=== PATIENT | male | born 1940 | race Caucasian/White ===

== ENCOUNTER → 2022-09-07 | Outpatient (CLI) | payer MEDICARE ==
--- NOTE | 2022-09-07 15:04 | US ---
EXAMINATION TYPE: US abdomen complete DATE OF EXAM: 09/07/2022 COMPARISON: NONE CLINICAL HISTORY: R74.01 ELEVATION OF LEVELS OF LIVER TRANSAMINASE L. TECHNIQUE: Multiple sonographic images of the abdomen are obtained. FINDINGS: EXAM MEASUREMENTS: Liver Length: 13.5 cm Gallbladder Wall: 0.22 cm CBD: 1.45 cm Spleen: 9.8 cm Right Kidney: 9.9 x 4.1 x 5.0 cm Left Kidney: 9.4 x 4.3 x 4.8 cm Pancreas: Tail obscured by overlying bowel gas Liver: Slightly echogenic. Biliary dilatation Gallbladder: Shadowing non mobile echogenic foci, 1.8 x 1.5 x 1.9cm Evidence for sonographic Carrera's sign: No CBD: Dilated up to 1.45 cm Spleen: wnl Right Kidney: Mid lateral pole anechoic mass 2.0 x 2.0 x 2.0cm Left Kidney: wnl Upper IVC: wnl Abd Aorta: Atherosclerotic changes IMPRESSION: 1. Dilated common bile duct. There is intrahepatic biliary dilatation. Correlate for common bile duct obstruction. 2. Cholelithiasis. 3 right renal cyst
== END | disposition home or self-care (01) ==
LOC: RADUSWWP 07:55
PROVIDERS: ATTEND Family Medicine
DX: K80.20 Calculus of gallbladder without cholecystitis without obstruction (principal); N28.1 Cyst of kidney, acquired
CPT/HCPCS: 76700

== ENCOUNTER 2023-05-15 18:50 | Inpatient (IN) | payer MEDICARE ==
--- NOTE | 2023-05-15 21:33 | XR ---
EXAMINATION TYPE: XR pelvis AP view DATE OF EXAM: 05/15/2023 9:10 PM INDICATION: Patient age:Male; 83 years old; Reason for study: Trauma; COMPARISON: None TECHNIQUE: The pelvis was examined in a single projection. FINDINGS: There is no evidence of fracture or dislocation. There is no soft tissue abnormality. No a bnormal calcifications are present. The spine appears intact. Multilevel disc degeneration changes of the spine. IMPRESSION: No acute osseous pathology.
--- NOTE | 2023-05-15 21:43 | XR ---
EXAMINATION TYPE: XR chest 1V portable DATE OF EXAM: 05/15/2023 9:10 PM COMPARISON: None TECHNIQUE: XR chest 1V portable Frontal view of the chest. CLINICAL INDICATION:Male, 83 years old with history of trauma; FINDINGS: Lungs/Pleura: There is no evidence of pleural effusion, focal consolidation, or pneumothorax. Pulmonary vascularity: Unremarkable. Heart/mediastinum: Cardiomediastinal silhouette is unremarkable. Musculoskeletal: No acute osseous pathology. IMPRESSION: No acute cardiopulmonary disease/process.
[2023-05-15 21:54] LABS: Basophils % (A) 0 %; Eosinophils # (A) 0.1 k/uL (0-0.7); Eosinophils % (A) 0 %; HCT 37.5 % (39.0-53.0); HGB 12.7 gm/dL (13.0-17.5); Lymphocytes % (A) 8 %; MCH 33.2 pg (25.0-35.0); MCHC 33.9 g/dL (31.0-37.0); Mean Platelet Volume 8.6; Monocytes # (A) 0.7 k/uL (0-1.0); Monocytes % (A) 6 %; Neutrophils # (A) 10.8 k/uL (1.3-7.7); Neutrophils % (A) 85 %; Platelet Count 166 k/uL (150-450); RBC 3.83 m/uL (4.30-5.90); RDW 13.5 % (11.5-15.5); WBC 12.6 k/uL (3.8-10.6)
[2023-05-15 22:05] LABS: INR 1.2 (<1.2); Partial Thromboplastin Time 24.9 sec (22.0-30.0); Prothrombin Time 12.5 sec (9.0-12.0)
[2023-05-15 22:14] LABS: ALT 24 U/L (4-49); AST 40 U/L (17-59); African American GFR (CKD) 48 (>60 ml/min/1.73 sqM); Albumin 3.6 g/dL (3.5-5.0); Alcohol <10 mg/dL; Alkaline Phosphatase 61 U/L (38-126); Anion Gap 8 mmol/L; Blood Urea Nitrogen 33 mg/dL (9-20); Calcium 9.4 mg/dL (8.4-10.2); Carbon Dioxide 23 mmol/L (22-30); Chloride 108 mmol/L (98-107); Glucose 100 mg/dL (74-99); Non-African American GFR(CKD) 41 (>60 ml/min/1.73 sqM); Potassium 3.5 mmol/L (3.5-5.1); Sodium 139 mmol/L (137-145)
--- NOTE | 2023-05-15 23:07 | CT ---
EXAM: CT Head Without Intravenous Contrast CLINICAL HISTORY: Trauma. TECHNIQUE: Axial computed tomography images of the head/brain without intravenous contrast. CTDI is 9.35 mGy and DLP is 268.17 mGy-cm. This CT exam was performed using one or more of the following dose reduction techniques: automated exposure control, adjustment of the mA and/or kV according to patient size, and/or use of iterative reconstruction technique. COMPARISON: No relevant prior studies available. FINDINGS: Brain: Cerebral volume loss not uncommon for age. No acute edema, hemorrhage or abnormal mass-effect. Ventricles: Unremarkable. No ventriculomegaly. Bones/joints: Unremarkable. No acute fracture. Soft tissues: Unremarkable. Sinuses: Unremarkable as visualized. No acute sinusitis. Mastoid air cells: Unremarkable as visualized. No mastoid effusion. IMPRESSION: No acute findings in the head/brain. EXAM: CT Cervical Spine Without Intravenous Contrast CLINICAL HISTORY: Trauma. TECHNIQUE: Axial computed tomography images of the cervical spine without intravenous contrast. CTDI is 9.35 mGy and DLP is 268.17 mGy-cm. This CT exam was performed using one or more of the following dose reduction techniques: automated exposure control, adjustment of the mA and/or kV according to patient size, and/or use of iterative reconstruction technique. COMPARISON: No relevant prior studies available. FINDINGS: Vertebrae: Very mild retrolisthesis of C5 on C6. No acute fracture. Discs/spinal canal/neural foramina: Spur formation causing moderately severe bilateral neural foraminal stenosis at C6/C7 and C5/C6. Advanced multilevel degenerative disc disease. Soft tissues: Unremarkable. IMPRESSION: No acute findings in the cervical spine.
--- NOTE | 2023-05-15 23:10 | CT ---
EXAM: CT Maxillofacial Without Intravenous Contrast CLINICAL HISTORY: trauma TECHNIQUE: Axial computed tomography images of the face without intravenous contrast. CTDI is 18.7 mGy and DLP is 536.35 mGy-cm. This CT exam was performed using one or more of the following dose reduction techniques: automated exposure control, adjustment of the mA and/or kV according to patient size, and/or use of iterative reconstruction technique. COMPARISON: No relevant prior studies available. FINDINGS: Bones/joints: No acute fracture. Soft tissues: Asymmetrical lateral left facial swelling. Orbits: Unremarkable. Sinuses: Unremarkable. No air-fluid levels. IMPRESSION: No acute fracture.
[2023-05-15] MEDS ORDERED: HEPARIN SODIUM 1,000 UN/ML (10ML VL) IV PRN (23:39)
[2023-05-15] MEDS ORDERED: HEPARIN SODIUM 1,000 UN/ML (10ML VL) IV ONE (23:39)
--- NOTE | 2023-05-15 23:55 | ED ---
General Adult HPI - General Chief complaint: Fall Stated complaint: fall/head injury Time Seen by Provider: 05/15/23 18:53 Source: EMS Mode of arrival: EMS Limitations: no limitations - History of Present Illness Initial comments: This is an 83-year-old male who presents emergency department via EMS after a fall. The patient was ANO 4 and able to answer all questions appropriately. The patient did state that earlier in the day he felt as if his legs became "Jell-O" and he fell down to the ground. The patient stated when his legs gave out, he fell, hitting the left side of his face on the corner of the cabinet. The patient stated that he was unable to get up off the ground so he dragged himself along the ground in order to hit the call light at his nursing facility. The patient stated that he didn't have any acute pain but had some minor chest soreness secondary to falling on the floor earlier. The patient was able to rest in bed comfortably on my evaluation. - Related Data Home Medications Medication Instructions Recorded Confirmed Fenofibrate [Lofibra] 160 mg PO DIRECTED 05/15/23 05/15/23 Finasteride [Proscar] 5 mg PO DIRECTED 05/15/23 05/15/23 Tamsulosin [Flomax] 0.4 mg PO DIRECTED 05/15/23 05/15/23 atenoloL 100 mg PO DIRECTED 05/15/23 05/15/23 Allergies Allergy/AdvReac Type Severity Reaction Status Date / Time No Known Allergies Allergy Verified 05/15/23 22:44 Review of Systems ROS Statement: Those systems with pertinent positive or pertinent negative responses have been documented in the HPI. ROS Other: All systems not noted in ROS Statement are negative. Past Medical History Past Medical History: Hyperlipidemia, Hypertension, Prostate Disorder History of Any Multi-Drug Resistant Organisms: None Reported Additional Past Surgical History / Comment(s): gall stones removed 03/2023 Past Psychological History: Depression Smoking Status: Never smoker Past Alcohol Use History: None Reported Past Drug Use History: None Reported General Exam Limitations: no limitations General appearance: alert, in no apparent distress Head exam: Present: normocephalic, normal inspection Eye exam: Present: normal appearance, PERRL, EOMI, other (Left periorbital contusion) Pupils: Present: normal accommodation ENT exam: Present: normal exam, normal oropharynx, mucous membranes moist Neck exam: Present: normal inspection, other (In c-collar) Respiratory exam: Present: normal lung sounds bilaterally Cardiovascular Exam: Present: regular rate, normal rhythm, normal heart sounds GI/Abdominal exam: Present: soft, normal bowel sounds Extremities exam: Present: normal inspection, full ROM Back exam: Present: normal inspection, full ROM Neurological exam: Present: alert, oriented X3, CN II-XII intact Psychiatric exam: Present: normal affect, normal mood Skin exam: Present: warm, dry Course Vital Signs 05/15/23 05/15/23 05/15/23 18:55 19:33 19:45 Pulse Rate 77 69 64 Respiratory 18 16 15 Rate Blood Pressure 125/65 125/65 O2 Sat by Pulse 98 98 Oximetry 05/15/23 05/15/23 05/15/23 20:00 20:30 21:00 Pulse Rate 58 L 60 56 L Respiratory 16 18 17 Rate Blood Pressure 109/56 97/62 114/70 O2 Sat by Pulse 96 97 100 Oximetry 05/15/23 05/15/23 05/15/23 21:30 22:00 22:30 Pulse Rate 53 L 52 L 53 L Respiratory 18 19 17 Rate Blood Pressure 107/61 110/59 123/77 O2 Sat by Pulse 98 99 98 Oximetry EKG Findings - EKG Comments: EKG Findings:: An EKG was obtained was interpreted by myself showing a rate of 68, WV interval 193, QRS duration 95 and QTC of 461. This EKG showed a normal sinus rhythm with no ST segment elevation or depression noted. Medical Decision Making - Medical Decision Making Was pt. sent in by a medical professional or institution (, PA, BLACKING MACHINE OPERATOR, urgent care, hospital, or penitentiary...) When possible be specific @ -No Did you speak to anyone other than the patient for history (EMS, parent, family, police, friend...)? What history was obtained from this source @ -No Did you review nursing and triage notes (agree or disagree)? Why? @ -I reviewed and agree with nursing and triage notes Were old charts reviewed (outside hosp., previous admission, EMS record, old EKG, old radiological studies, urgent care reports/EKG's, penitentiary records)? Report findings @ -No old charts were reviewed Differential Diagnosis (chest pain, altered mental status, abdominal pain women, abdominal pain men, vaginal bleeding, weakness, fever, dyspnea, syncope, headache, dizziness, GI bleed, back pain, seizure, CVA, palpatations, mental health)? @ -Intracranial hemorrhage, cervical spine fracture, chest wall muscle strain EKG interpreted by me (3pts min.). @ -As above X-rays interpreted by me (1pt min.). @ -Chest x-ray and pelvis x-ray were obtained and were interpreted by myself showing no acute findings. CT interpreted by me (1pt min.). @ -CT of the facial bones was obtained and was interpreted by myself showing no acute fractures or processes. CT head and CT C-spine were also obtained and were interpreted by myself showing no acute process. U/S interpreted by me (1pt. min.). @ -None done What testing was considered but not performed or refused? (CT, X-rays, U/S, labs)? Why? @ -None What meds were considered but not given or refused? Why? @ -None Did you discuss the management of the patient with other professionals (professionals i.e. , PA, BLACKING MACHINE OPERATOR, lab, RT, psych nurse, social sciences professor, crate repairer, teacher, data officer, child welfare caseworker)? Give summary @ -Yes, Dr. Pyle was contacted for admission as he did, the patient's private care physician. Was smoking cessation discussed for >3mins.? @ -No Was critical care preformed (if so, how long)? @ -No Were there social determinants of health that impacted care today? How? (Homelessness, low income, unemployed, alcoholism, drug addiction, transportation, low edu. Level, literacy, decrease access to med. care, residential, rehab)? @ -No Was there de-escalation of care discussed even if they declined (Discuss DNR or withdrawal of care, Hospice)? DNR status @ -No What co-morbidities impacted this encounter? (DM, HTN, Smoking, COPD, CAD, Can cer, CVA, ARF, Chemo, Hep., AIDS, mental health diagnosis, sleep apnea, morbid obesity)? @ -Hypertension, BPH Was patient admitted / discharged? Hospital course, mention meds given and route, prescriptions, significant lab abnormalities, going to OR and other pe rtinent info. @ -The patient was seen and evaluated emergency department. Physical exam, the patient was resting in bed without any acute distress. The patient was in c- collar. The patient did have a contusion around the left side of the face and due to the patient's fall, scans as well as x-rays were obtained. All imaging was negative. Laboratory workup was also obtained due to the patient's reported weakness. The troponin was significantly elevated at 1.1 and due to the patient's symptoms, the patient be started on a heparin drip and treated as a NSTEMI. The patient will be admitted for further workup and evaluation and he did agree with this plan. The patient was admitted in stable condition. Undiagnosed new problem with uncertain prognosis? @ -No Drug Therapy requiring intensive monitoring for toxicity (Heparin, Nitro, Insulin, Cardizem)? @ -Heparin Were any procedures done? @ -No Diagnosis/symptom? @ -NSTEMI, fall Acute, or Chronic, or Acute on Chronic? @ -Acute Uncomplicated (without systemic symptoms) or Complicated (systemic symptoms)? @ -Complicated Side effects of treatment? @ -No Exacerbation, Progression, or Severe Exacerbation? @ -No Poses a threat to life or bodily function? How? (Chest pain, USA, NM, pneumonia, PE, COPD, DKA, ARF, appy, cholecystitis, CVA, Diverticulitis, Homicidal, Suicidal, threat to staff... and all critical care pts) @ -Yes, NSTEMI can lead to ACS and can lead to permanent damage and possible . - Lab Data Result diagrams: 05/15/23 21:30 05/15/23 21:30 Lab Results 05/15/23 05/15/23 05/15/23 Range/Units 21:25 21:30 21:30 WBC 12.6 H (3.8-10.6) k/uL RBC 3.83 L (4.30-5.90) m/uL Hgb 12.7 L (13.0-17.5) gm/dL Hct 37.5 L (39.0-53.0) % MCV 98.0 (80.0-100.0) fL MCH 33.2 (25.0-35.0) pg MCHC 33.9 (31.0-37.0) g/dL RDW 13.5 (11.5-15.5) % Plt Count 166 (150-450) k/uL MPV 8.6 Neutrophils % 85 % Lymphocytes % 8 % Monocytes % 6 % Eosinophils % 0 % Basophils % 0 % Neutrophils # 10.8 H (1.3-7.7) k/uL Lymphocytes # 1.0 (1.0-4.8) k/uL Monocytes # 0.7 (0-1.0) k/uL Eosinophils # 0.1 (0-0.7) k/uL Basophils # 0.0 (0-0.2) k/uL PT 12.5 H (9.0-12.0) sec INR 1.2 H (<1.2) APTT 24.9 (22.0-30.0) sec Sodium (137-145) mmol/L Potassium (3.5-5.1) mmol/L Chloride (98-107) mmol/L Carbon Dioxide (22-30) mmol/L Anion Gap mmol/L BUN (9-20) mg/dL Creatinine (0.66-1.25) mg/dL Est GFR (CKD-EPI)AfAm (>60 ml/min/1.73 sqM) Est GFR (CKD-EPI)NonAf (>60 ml/min/1.73 sqM) Glucose (74-99) mg/dL Plasma Lactic Acid Tony (0.7-2.0) mmol/L Calcium (8.4-10.2) mg/dL Total Bilirubin (0.2-1.3) mg/dL AST (17-59) U/L ALT (4-49) U/L Alkaline Phosphatase (38-126) U/L Troponin I (0.000-0.034) ng/mL Total Protein (6.3-8.2) g/dL Albumin (3.5-5.0) g/dL Serum Alcohol mg/dL Blood Type Blood Type Confirm O Positive Blood Type Recheck Bld Type Recheck Status Antibody Screen Spec Expiration Date 05/15/23 05/15/23 05/15/23 Range/Units 21:30 21:30 21:30 WBC (3.8-10.6) k/uL RBC (4.30-5.90) m/uL Hgb (13.0-17.5) gm/dL Hct (39.0-53.0) % MCV (80.0-100.0) fL MCH (25.0-35.0) pg MCHC (31.0-37.0) g/dL RDW (11.5-15.5) % Plt Count (150-450) k/uL MPV Neutrophils % % Lymphocytes % % Monocytes % % Eosinophils % % Basophils % % Neutrophils # (1.3-7.7) k/uL Lymphocytes # (1.0-4.8) k/uL Monocytes # (0-1.0) k/uL Eosinophils # (0-0.7) k/uL Basophils # (0-0.2) k/uL PT (9.0-12.0) sec INR (<1.2) APTT (22.0-30.0) sec Sodium 139 (137-145) mmol/L Potassium 3.5 (3.5-5.1) mmol/L Chloride 108 H (98-107) mmol/L Carbon Dioxide 23 (22-30) mmol/L Anion Gap 8 mmol/L BUN 33 H (9-20) mg/dL Creatinine 1.55 H (0.66-1.25) mg/dL Est GFR (CKD-EPI)AfAm 48 (>60 ml/min/1.73 sqM) Est GFR (CKD-EPI)NonAf 41 (>60 ml/min/1.73 sqM) Glucose 100 H (74-99) mg/dL Plasma Lactic Acid Tony 1.3 (0.7-2.0) mmol/L Calcium 9.4 (8.4-10.2) mg/dL Total Bilirubin 1.0 (0.2-1.3) mg/dL AST 40 (17-59) U/L ALT 24 (4-49) U/L Alkaline Phosphatase 61 (38-126) U/L Troponin I 1.160 H* (0.000-0.034) ng/mL Total Protein 6.0 L (6.3-8.2) g/dL Albumin 3.6 (3.5-5.0) g/dL Serum Alcohol <10 mg/dL Blood Type Blood Type Confirm Blood Type Recheck Bld Type Recheck Status Antibody Screen Spec Expiration Date 05/15/23 Range/Units 21:30 WBC (3.8-10.6) k/uL RBC (4.30-5.90) m/uL Hgb (13.0-17.5) gm/dL Hct (39.0-53.0) % MCV (80.0-100.0) fL MCH (25.0-35.0) pg MCHC (31.0-37.0) g/dL RDW (11.5-15.5) % Plt Count (150-450) k/uL MPV Neutrophils % % Lymphocytes % % Monocytes % % Eosinophils % % Basophils % % Neutrophils # (1.3-7.7) k/uL Lymphocytes # (1.0-4.8) k/uL Monocytes # (0-1.0) k/uL Eosinophils # (0-0.7) k/uL Basophils # (0-0.2) k/uL PT (9.0-12.0) sec INR (<1.2) APTT (22.0-30.0) sec Sodium (137-145) mmol/L Potassium (3.5-5.1) mmol/L Chloride (98-107) mmol/L Carbon Dioxide (22-30) mmol/L Anion Gap mmol/L BUN (9-20) mg/dL Creatinine (0.66-1.25) mg/dL Est GFR (CKD-EPI)AfAm (>60 ml/min/1.73 sqM) Est GFR (CKD-EPI)NonAf (>60 ml/min/1.73 sqM) Glucose (74-99) mg/dL Plasma Lactic Acid Tony (0.7-2.0) mmol/L Calcium (8.4-10.2) mg/dL Total Bilirubin (0.2-1.3) mg/dL AST (17-59) U/L ALT (4-49) U/L Alkaline Phosphatase (38-126) U/L Troponin I (0.000-0.034) ng/mL Total Protein (6.3-8.2) g/dL Albumin (3.5-5.0) g/dL Serum Alcohol mg/dL Blood Type O Positive Blood Type Confirm Blood Type Recheck No Previous Record Bld Type Recheck Status CABO Indicated Antibody Screen NEGATIVE Spec Expiration Date 05/18/20232329 Disposition Clinical Impression: NSTEMI (non-ST elevated myocardial infarction), Fall Disposition: ADMITTED IP TO THIS HOSP Condition: Stable Is patient prescribed a controlled substance at d/c from ED?: No Referrals: Lito Bassett MD [Primary Care Provider] - 1-2 days Time of Disposition: 22:30 Decision to Admit Reason: Admit from EC Decision Date: 05/15/23 Decision Time: 22:30
[2023-05-15] MEDS: HEPARIN SOD,PORK IN 0.45% NACL 25,000 UNIT in 0.45% NACL 1 250ML.BAG IV SCH (23:59)
[2023-05-16] MEDS ORDERED: NALOXONE 0.4 MG/ML 1 ML VIAL IV PRN (00:01)
--- NOTE | 2023-05-16 03:45 | P.HPIM ---
History of Present Illness H&P Date: 05/16/23 Patient is a 83-year-old male with a PMH of BPH and hypertension who presents to the emergency room after a fall. The patient reports that he was in his usual state of health until earlier today as he was walking around in his home and felt as though his legs are getting weaker. No weakness quickly progressed over a few minutes and he felt as though his legs became "Jell-O", causing him to fall to the ground. He denies losing consciousness. Reports hitting the left side of his face on furniture nearby. He was unable to stand up and Making noise until some workers her to have and came to his aid. He reports feeling significantly better at the time of interview. He denied experiencing chest discomfort, shortness of breath, fever, chills, cough, nausea, vomiting, palpitations, diarrhea. In the emergency room a pelvis x-ray was unremarkable. Chest x-ray was also unremarkable. Head and cervical spine CT revealed no acute abnormalities. Facial CT was unremarkable. EKG revealed sinus rhythm at [address]/T- wave changes noted as reviewed by me. Laboratory evaluation was remarkable for leukocytosis of 12.6, BUN 33, creatinine 1.5, and troponin 1.160. ED documentation reviewed and case discussed with ED provider. Review of systems: Pertinent positives and negatives as discussed in HPI, a complete review of systems was performed and all other systems are negative. Physical examination: Vital signs reviewed General: non toxic, no distress, appears at stated age, normal weight Derm: no unusual rashes/lesions, warm Head: atraumatic, normocephalic, symmetric Eyes: EOMI, no lid lag, anicteric sclera, pupils equal round reactive to light ENT: Nose and ears atraumatic Neck: No cervical lymphadenopathy, trachea midline, supple Mouth: no lip lesion, mucus membranes moist Cardiovascular: S1S2 reg, no murmur, positive dorsalis pedis pulse bilateral, no edema Lungs: CTA bilateral, no rhonchi, no rales, no accessory muscle use Abdominal: soft, nontender to palpation, no guarding Ext: muscle strength 5 out of 5 in all 4 extremities grossly, no gross muscle atrophy, no contractures, Neuro: CN II-XI grossly intact, no gross focal neuro deficits Psych: Alert, oriented, appropriate affect Assessment: NSTEMI Leukocytosis, likely due to acute stressor, no signs of activ infection Fall Kidney injury, acute versus chronic Imaging: In the emergency room a pelvis x-ray was unremarkable. Chest x-ray was also u nremarkable. Head and cervical spine CT revealed no acute abnormalities. Facial CT was unremarkable. EKG revealed sinus rhythm at [address]/T- wave changes noted as reviewed by me. Data Review: Laboratory evaluation was remarkable for leukocytosis of 12.6, BUN 33, creatinine 1.5, and troponin 1.160. Plan: Continue with heparin infusion and aspirin Cardiology consulted Cardiac monitoring Trend troponin PT consult Fall precautions DVT prophylaxis: Heparin infusion The patient is admitted with an anticipated greater than 2 midnight stay for evaluation of NSTEMI CODE STATUS: Full Code Discussed with: Patient Anticipated discharge place: Home Past Medical History Past Medical History: Hyperlipidemia, Hypertension, Prostate Disorder History of Any Multi-Drug Resistant Organisms: None Reported Additional Past Surgical History / Comment(s): gall stones removed 03/2023 Past Psychological History: Depression Smoking Status: Never smoker Past Alcohol Use History: None Reported Past Drug Use History: None Reported - Past Family History Mother Family Medical History: Hypertension Medications and Allergies Home Medications Medication Instructions Recorded Confirmed Type Fenofibrate [Lofibra] 160 mg PO DIRECTED 05/15/23 05/15/23 History Finasteride [Proscar] 5 mg PO DIRECTED 05/15/23 05/15/23 History Tamsulosin [Flomax] 0.4 mg PO DIRECTED 05/15/23 05/15/23 History atenoloL 100 mg PO DIRECTED 05/15/23 05/15/23 History Allergies Allergy/AdvReac Type Severity Reaction Status Date / Time No Known Allergies Allergy Verified 05/15/23 22:44 Physical Exam Vitals: Vital Signs Pulse Resp BP Pulse Ox 05/16/23 01:00 55 L 18 125/69 98 05/16/23 00:00 58 L 18 120/78 100 05/15/23 23:30 56 L 18 112/69 100 05/15/23 23:00 54 L 20 125/67 100 05/15/23 22:30 53 L 17 123/77 98 05/15/23 22:00 52 L 19 110/59 99 05/15/23 21:30 53 L 18 107/61 98 05/15/23 21:00 56 L 17 114/70 100 05/15/23 20:30 60 18 97/62 97 05/15/23 20:00 58 L 16 109/56 96 05/15/23 19:45 64 15 98 05/15/23 19:33 69 16 125/65 05/15/23 18:55 77 18 125/65 98 Intake and Output 05/15/23 05/15/23 05/16/23 14:59 22:59 06:59 Other: Weight 58.967 kg Results CBC & Chem 7: 05/15/23 21:30 05/15/23 21:30 Labs: Abnormal Lab Results - Last 24 Hours (Table) 05/15/23 05/15/23 05/15/23 Range/Units 21:30 21:30 21:30 WBC 12.6 H (3.8-10.6) k/uL RBC 3.83 L (4.30-5.90) m/uL Hgb 12.7 L (13.0-17.5) gm/dL Hct 37.5 L (39.0-53.0) % Neutrophils # 10.8 H (1.3-7.7) k/uL PT 12.5 H (9.0-12.0) sec INR 1.2 H (<1.2) Chloride 108 H (98-107) mmol/L BUN 33 H (9-20) mg/dL Creatinine 1.55 H (0.66-1.25) mg/dL Glucose 100 H (74-99) mg/dL Troponin I (0.000-0.034) ng/mL Total Protein 6.0 L (6.3-8.2) g/dL 05/15/23 Range/Units 21:30 WBC (3.8-10.6) k/uL RBC (4.30-5.90) m/uL Hgb (13.0-17.5) gm/dL Hct (39.0-53.0) % Neutrophils # (1.3-7.7) k/uL PT (9.0-12.0) sec INR (<1.2) Chloride (98-107) mmol/L BUN (9-20) mg/dL Creatinine (0.66-1.25) mg/dL Glucose (74-99) mg/dL Troponin I 1.160 H* (0.000-0.034) ng/mL Total Protein (6.3-8.2) g/dL
[2023-05-16] MEDS ORDERED: ASPIRIN 81 MG PO STA (03:52)
[2023-05-16 06:31] LABS: Basophils % (A) 0 %; Eosinophils # (A) 0.1 k/uL (0-0.7); Eosinophils % (A) 1 %; HCT 37.5 % (39.0-53.0); HGB 12.4 gm/dL (13.0-17.5); Lymphocytes # (A) 1.5 k/uL (1.0-4.8); Lymphocytes % (A) 17 %; MCH 32.3 pg (25.0-35.0); MCV 97.7 fL (80.0-100.0); Mean Platelet Volume 8.8; Monocytes # (A) 0.5 k/uL (0-1.0); Monocytes % (A) 6 %; Neutrophils # (A) 6.4 k/uL (1.3-7.7); Neutrophils % (A) 74 %; Platelet Count 158 k/uL (150-450); RBC 3.84 m/uL (4.30-5.90); RDW 13.9 % (11.5-15.5); WBC 8.6 k/uL (3.8-10.6)
[2023-05-16 06:39] LABS: INR 1.2 (<1.2); Partial Thromboplastin Time 76.5 sec (22.0-30.0); Prothrombin Time 12.7 sec (9.0-12.0)
[2023-05-16 08:41] LABS: Appearance,Urine Clear (Clear); Bilirubin,Urine Negative (Negative); Blood,Urine Small (Negative); Color,Urine Yellow; Glucose,Urine (UA) Negative (Negative); Ketones,Urine Trace (Negative); Leukocyte Esterase,Urine Negative (Negative); Mucus,Urine Occasional /hpf; Nitrite,Urine Negative (Negative); Protein,Urine Trace (Negative); RBC,Urine 54 /hpf (0-5); Specific Gravity,Urine 1.024 (1.001-1.035); Squamous Epithelial Cell,Urine 1 /hpf (0-4); Urobilinogen,Urine <2.0 mg/dL (<2.0); WBC,Urine 3 /hpf (0-5)
[2023-05-16 08:44] LABS: Amphetamine Screen,Urine Not Detected (NotDetected); Barbiturate Screen,Urine Not Detected (NotDetected); Benzodiazepines Screen,Urine Not Detected (NotDetected); Cocaine Screen,Urine Not Detected (NotDetected); Methadone Screen, Urine Not Detected (NotDetected); Opiate Screen,Urine Not Detected (NotDetected); Oxycodone Screen, Urine Not Detected (NotDetected); Phencyclidine Screen,Urine Not Detected (NotDetected); Tricyclic Antidepressant,Urine Not Detected (NotDetected); Urn Cannabinoid Scrn Not Detected (NotDetected)
[2023-05-16] MEDS: ATORVASTATIN 40 MG TAB PO SCH (08:47)
[2023-05-16] MEDS: ASPIRIN 81 MG PO SCH (08:47)
[2023-05-16] MEDS: SODIUM CHLORIDE 0.9% 1,000 ML IV SCH ×2 (10:14→21:07)
--- NOTE | 2023-05-16 11:36 | P.PN ---
Progress Note - Text Progress Note Date: 05/16/23 Refer to H&P for full documentation. Patient is a 83-year-old male with a PMH of BPH and hypertension who presents to the emergency room after a fall. In the emergency room a pelvis x-ray was unremarkable. Chest x-ray was also unremarkable. Head and cervical spine CT revealed no acute abnormalities. Facial CT was unremarkable. EKG revealed sinus rhythm at [address]/T-wave changes noted as reviewed by me. Laboratory evaluation was remarkable for leukocytosis of 12.6, BUN 33, cr eatinine 1.5, and troponin 1.160. Patient was started on a heparin drip and admitted for non-ST elevation PA. 05/16 Patient seen and examined was seen in the ED. Troponins trended at 1.110 and 0.969. Currently on a heparin drip running at 12 units/kg/hr. He denies any chest pain, SOB, palpitations or lightheadedness. Patient is in no acute distress. NSTEMI Leukocytosis, likely due to acute stressor, no signs of active infection Fall Kidney injury, acute versus chronic Based on my assessment of this patient, this patient meets a high complexity level of care. Patient has an acute diagnosis of NSTEMI status post fall that poses a threat to life or bodily function. His troponins are 1.16, 1.11, 0.96. He is currently on a heparin drip at 12 units/kg/hr. Started on ASA 81 mg PO QD, Lipitor 40 mg PO QD. Telemetry monitoring ordered. Echocardiogram ordered. Cardiology consulted for further management of this patient. I have reviewed the following [facility] consultant notes: I have reviewed the results of the following tests: Troponin as above. APTT 76.5. I have ordered the following tests: CBC, BMP, APTT. I have discussed the care of this patient with the following independent historian: I have independently interpreted the following test below: I have discussed the management of this patient with the following physician: This patient has a high risk of morbidity due to the following reasons: Patient is on a heparin drip that requires intensive monitoring of APTT.
--- NOTE | 2023-05-16 13:10 | P.CRDCN ---
History of Present Illness Consult date: 05/16/23 Consult reason: non-Q-wave PR History of present illness: History of present illness: This is an 83 year old male patient with no previous cardiac history. He states he's never had a cardiac catheterization, stress test, surgery. He has a past medical history of hypertension, hyperlipidemia and history of recent ERCP at [facility] in March. Patient states that yesterday he was walking all of a sudden his legs gave out on him and fell onto the table hitting his forehead. He couldn't get up and he had no power in his legs and he still can't bend or lift his legs well. Patient denies having any chest pain. No shortness of breath, no palpitations, no cough, no fever or chills. Patient is seen today in the emergency center waiting for a bed on the cardiac stepdown unit. Patient denies history of smoking. His mother had history of PR and at age 65. Telemetry is sinus rhythm in the 40s. EKG sinus rhythm Chest x-ray: No acute findings Pelvic x-ray negative CAT scan of the head and cervical spine revealed no acute findings in the head and brain or cervical spine. CAT scan of the face reveals no acute fracture WBC 12.6, repeat 8.6, hemoglobin 12.4. INR 1.2. Troponins 1.16, 1.11, 0.969. BUN 33 creatinine 1.55. Urine drug screen was negative. Serum alcohol level less than 10. Home cardiac medications: Atenolol 100 mg daily Review Of Systems: At the time of my evaluation: Constitutional: No fever, no chills. Reports lower extremity weakness. EENT: No headache. No dizziness. Lungs: No shortness of breath, cough, no sputum production. No wheezing. Cardiovascular: No chest pain, no lower extremity edema. No palpitations. No paroxysmal nocturnal dyspnea. No orthopnea. No lightheadedness or dizziness. No syncopal episodes. Abdominal: No abdominal pain. No nausea, vomiting. No diarrhea. No constipation. No bloody or tarry stools. Genitourinary: No dysuria.. No urinary retention. Musculoskeletal: No myalgias. No muscle weakness, no frequent falls. No back pain. No neck pain. Integumentary: No wounds. No rash. No unusual bruising. Neurologic: No aphasia. No facial droop. No change in mentation. No head injury. No headache. Physical examination: Gen: This is an 83-year-old male. He is resting on ER stretch and appears to be comfortable and in no acute distress. VS: reviewed HEENT: Head is atraumatic, normocephalic. Pupils equal, round. Sclerae is anicteric. NECK: Supple. No JVD. . LUNGS: Clear to auscultation. No wheezes or rhonchi. No intercostal re tractions. HEART: Regular rate and rhythm. No murmur. ABDOMEN: Soft No tenderness. EXTREMITIES: No pedal edema. No calf tenderness. NEUROLOGICAL: Patient is awake, alert and oriented x3. Assessment: Non-ST elevated myocardial infarction Bradycardia Weakness in the legs Hypertension Hyperlipidemia Plan: Continue patient on heparin drip Start patient on aspirin 81 mg daily, atorvastatin 40 mg daily No beta priyanka due to bradycardia Obtain 2-D echocardiogram and Doppler study to assess cardiac structure and function Further recommendations to follow based upon clinical course Thank you kindly for this consultation. Nurse practitioner note has been reviewed, I agree with documented findings and plan of care. Patient was seen and examined. Past Medical History Past Medical History: Hyperlipidemia, Hypertension, Prostate Disorder History of Any Multi-Drug Resistant Organisms: None Reported Additional Past Surgical History / Comment(s): gall stones removed 03/2023 Past Psychological History: Depression Smoking Status: Never smoker Past Alcohol Use History: None Reported Past Drug Use History: None Reported - Past Family History Mother Family Medical History: Hypertension Medications and Allergies Home Medications Medication Instructions Recorded Confirmed Type Fenofibrate [Lofibra] 160 mg PO DAILY 05/15/23 05/16/23 History Finasteride [Proscar] 5 mg PO DAILY 05/15/23 05/16/23 History Tamsulosin [Flomax] 0.4 mg PO BID 05/15/23 05/16/23 History atenoloL 100 mg PO DAILY 05/15/23 05/16/23 History Allergies Allergy/AdvReac Type Severity Reaction Status Date / Time No Known Allergies Allergy Verified 05/15/23 22:44 Physical Exam Vitals: Vital Signs Pulse Resp BP Pulse Ox 05/16/23 05:00 40 L 14 123/56 99 05/16/23 04:00 53 L 16 111/79 99 05/16/23 03:00 45 L 17 111/79 98 05/16/23 02:00 48 L 17 125/69 99 05/16/23 01:00 55 L 18 125/69 98 05/16/23 00:00 58 L 18 120/78 100 05/15/23 23:30 56 L 18 112/69 100 05/15/23 23:00 54 L 20 125/67 100 05/15/23 22:30 53 L 17 123/77 98 05/15/23 22:00 52 L 19 110/59 99 05/15/23 21:30 53 L 18 107/61 98 05/15/23 21:00 56 L 17 114/70 100 05/15/23 20:30 60 18 97/62 97 05/15/23 20:00 58 L 16 109/56 96 05/15/23 19:45 64 15 98 05/15/23 19:33 69 16 125/65 05/15/23 18:55 77 18 125/65 98 Intake and Output 05/15/23 05/16/23 05/16/23 22:59 06:59 14:59 Other: Weight 58.967 kg Results 05/16/23 05:32 05/15/23 21:30 Cardiac Enzymes 05/15/23 05/15/23 05/16/23 Range/Units 21:30 21:30 03:59 AST 40 (17-59) U/L Troponin I 1.160 H* 1.110 H* (0.000-0.034) ng/mL 05/16/23 Range/Units 05:32 AST (17-59) U/L Troponin I 0.969 H* (0.000-0.034) ng/mL Coagulation 05/15/23 05/16/23 Range/Units 21:30 05:32 PT 12.5 H 12.7 H (9.0-12.0) sec APTT 24.9 76.5 H (22.0-30.0) sec CBC 05/15/23 05/16/23 Range/Units 21:30 05:32 WBC 12.6 H 8.6 (3.8-10.6) k/uL RBC 3.83 L 3.84 L (4.30-5.90) m/uL Hgb 12.7 L 12.4 L (13.0-17.5) gm/dL Hct 37.5 L 37.5 L (39.0-53.0) % Plt Count 166 158 (150-450) k/uL Comprehensive Metabolic Panel 05/15/23 Range/Units 21:30 Sodium 139 (137-145) mmol/L Potassium 3.5 (3.5-5.1) mmol/L Chloride 108 H (98-107) mmol/L Carbon Dioxide 23 (22-30) mmol/L BUN 33 H (9-20) mg/dL Creatinine 1.55 H (0.66-1.25) mg/dL Glucose 100 H (74-99) mg/dL Calcium 9.4 (8.4-10.2) mg/dL AST 40 (17-59) U/L ALT 24 (4-49) U/L Alkaline Phosphatase 61 (38-126) U/L Total Protein 6.0 L (6.3-8.2) g/dL Albumin 3.6 (3.5-5.0) g/dL Current Medications Generic Name Dose Route Start Last Admin Trade Name Brettq PRN Reason Stop Dose Admin Heparin Sodium (Porcine) 0 unit 05/15/23 23:39 Heparin Sodium 1,000 Un/Ml (10ml Vl) IV PER PROTOCOL PRN Low PTT Protocol Heparin Sodium/Sodium Chloride 250 mls @ 7.076 mls/hr 05/15/23 23:45 05/15/23 23:59 25,000 unit/ Sodium Chloride IV 12 units/kg/hr .Q24H JOSE 7.076 mls/hr Administration Protocol 12 UNITS/KG/HR Naloxone HCl 0.2 mg 05/16/23 00:01 Naloxone 0.4 Mg/Ml 1 Ml Vial IV Q2M PRN Opioid Reversal Intake and Output 05/15/23 05/16/23 05/16/23 22:59 06:59 14:59 Other: Weight 58.967 kg 05/16/23 05:32 05/15/23 21:30
[2023-05-16] MEDS: TAMSULOSIN 0.4 MG CAP.ER.24H PO SCH (21:06)
[2023-05-17] MEDS: HEPARIN SOD,PORK IN 0.45% NACL 25,000 UNIT in 0.45% NACL 1 250ML.BAG IV SCH ×2 (00:51→11:40)
[2023-05-17] MEDS ORDERED: LORazepam 2 MG/ML INJ IV STA (01:22)
[2023-05-17] MEDS: SODIUM CHLORIDE 0.9% 1,000 ML IV SCH ×2 (06:05→10:24)
[2023-05-17] MEDS: FINASTERIDE 5 MG TAB PO SCH (10:12)
[2023-05-17] MEDS: TAMSULOSIN 0.4 MG CAP.ER.24H PO SCH ×2 (10:12→20:12)
[2023-05-17] MEDS: FENOFIBRATE 160 MG TAB PO SCH (10:12)
[2023-05-17] MEDS: atenoloL 50 MG TAB PO SCH (10:12)
[2023-05-17] MEDS: ATORVASTATIN 40 MG TAB PO SCH (10:12)
[2023-05-17] MEDS: ASPIRIN 81 MG PO SCH (10:12)
[2023-05-17 10:19] LABS: HCT 39.3 % (39.0-53.0); HGB 13.1 gm/dL (13.0-17.5); MCH 32.4 pg (25.0-35.0); MCHC 33.3 g/dL (31.0-37.0); MCV 97.3 fL (80.0-100.0); Mean Platelet Volume 8.9; Platelet Count 171 k/uL (150-450); RBC 4.04 m/uL (4.30-5.90); RDW 13.7 % (11.5-15.5); WBC 12.1 k/uL (3.8-10.6)
[2023-05-17 10:32] LABS: African American GFR (CKD) 67 (>60 ml/min/1.73 sqM); Anion Gap 14 mmol/L; Blood Urea Nitrogen 22 mg/dL (9-20); Calcium 8.9 mg/dL (8.4-10.2); Carbon Dioxide 15 mmol/L (22-30); Chloride 112 mmol/L (98-107); Glucose 65 mg/dL (74-99); Non-African American GFR(CKD) 58 (>60 ml/min/1.73 sqM); Sodium 141 mmol/L (137-145)
[2023-05-17 11:06] LABS: Glucose,Whole Blood 94 mg/dL (70-110)
--- NOTE | 2023-05-17 11:59 | CA ---
Transthoracic Echo Report Name: Moiz Gutierrez Age: 83 Gender: M : 1940 Exam Date: 05/16/2023 14:10 Exam Location: [place] [facility] Ht (in): 68 Wt (lb): 130 Ordering Physician: Dontae Schulz MD ([id number]) Attending/Referring Phys: Jazz NIEVES Laundry Helper Laurie Posadas [facility] Procedure CPT: Indications: + trop Cardiac Hx: Technical Quality: Technically difficult study Contrast 1: Lumason Total Dose (mL): 5 Contrast 2: Total Dose (mL): MEASUREMENTS (Male / Female) Normal Values 2D ECHO LV Diastolic Diameter PLAX 5.1 cm 4.2 - 5.9 / 3.9 - 5.3 cm LV Systolic Diameter PLAX 4.4 cm IVS Diastolic Thickness 0.9 cm 0.6 - 1.0 / 0.6 - 0.9 cm LVPW Diastolic Thickness 0.9 cm 0.6 - 1.0 / 0.6 - 0.9 cm LV Relative Wall Thickness 0.3 M-MODE Aortic Root Diameter MM 3.7 cm AV Cusp Separation MM 1.9 cm DOPPLER AV Peak Velocity 106.0 cm/s AV Peak Gradient 4.5 mmHg AV Mean Velocity 69.4 cm/s AV Mean Gradient 2.2 mmHg AV Velocity Time Integral 24.7 cm LVOT Peak Velocity 89.2 cm/s LVOT Peak Gradient 3.2 mmHg LVOT Velocity Time Integral 19.3 cm Mitral E Point Velocity 56.9 cm/s Mitral A Point Velocity 89.9 cm/s Mitral E to A Ratio 0.6 MV Deceleration Time 323.4 ms LV E' Lateral Velocity 6.6 cm/s Mitral E to LV E' Lateral Ratio 8.6 LV E' Septal Velocity 5.8 cm/s Mitral E to LV E' Septal Ratio 9.9 TR Peak Velocity 257.5 cm/s TR Peak Gradient 26.5 mmHg Right Atrial Pressure 3.0 mmHg Pulmonary Artery Systolic Pressu 29.5 mmHg Right Ventricular Systolic Press 31.5 mmHg FINDINGS Left Ventricle Left ventricular cavity size at the upper limits of normal. Left ventricular wall thickness normal. Left ventricular ejection fraction is estimated at 45%. Mildy reduced left ventricular systolic function. Right Ventricle Right ventricle not well visualized. Right Atrium Normal right atrial size. Left Atrium Normal left atrial size. Mitral Valve Mitral valve thickened. Mild mitral annular calcification. Mildly decreased mobility of the posterior mitral valve leaflet. No mitral regurgitation. Aortic Valve Aortic valve not well visualized. Trace aortic regurgitation. Tricuspid Valve Structurally normal tricuspid valve. Mild tricuspid regurgitation. Pulmonic Valve Pulmonic valve not well visualized. Pericardium No pericardial effusion. Prominent epicardial fat. Aorta Mild aortic dilatation at the level of the sinuses of valsalva (root). CONCLUSIONS Mildly reduced LV systolic function ejection fraction 45-50% Previewed by: Dr. Chu Stokes MD (Electronically Signed) Final Date: 17 May 2023 11:58
[2023-05-17] MEDS ORDERED: LORazepam 2 MG/ML INJ IV PRN (12:42)
--- NOTE | 2023-05-17 13:18 | P.PN ---
Subjective Progress Note Date: 05/17/23 Patient is a 83-year-old male with a PMH of BPH and hypertension who presents to the emergency room after a fall. In the emergency room a pelvis x-ray was unremarkable. Chest x-ray was also unremarkable. Head and cervical spine CT revealed no acute abnormalities. Facial CT was unremarkable. EKG revealed sinus rhythm at [address]/T-wave changes noted as reviewed by me. Laboratory evaluation was remarkable for leukocytosis of 12.6, BUN 33, creatinine 1.5, and troponin 1.160. Patient was started on a heparin drip and admitted for non-ST elevation IN. 05/16 Patient seen and examined was seen in the ED. Troponins trended at 1.110 and 0.969. Currently on a heparin drip running at 12 units/kg/hr. He denies any chest pain, SOB, palpitations or lightheadedness. 05/17 Patient was seen and examined. Placed on soft restraints overnight for agitation. Patient is confused and combative. Sitter at bedside. Apparently, sister was called yesterday, patient had a similar episode during a recent h ospitalization. CBC shows WBC count of 12.1. APTT 49. BMP shows Cl 112, bicarb 15, BUN 22, glucose 65. Echocardiogram shows EF of 45%. General: non toxic, mild distress, appears at stated age Derm: warm, dry Head: atraumatic, normocephalic, symmetric Eyes: EOMI, no lid lag, anicteric sclera Cardiovascular: Bradycardic, no murmur Lungs: CTA bilateral, no rhonchi, no rales , no accessory muscle use Ext: no gross muscle atrophy, no edema, no contractures Neuro: no focal neuro deficits Psych: Confused and combative Acute metabolic encephalopathy Hypoglycemia NSTEMI Bradycardia Fall Kidney injury, acute versus chronic Resolved: Leukocytosis Based on my assessment of this patient, this patient meets a high complexity level of care. Patient has an acute diagnosis of NSTEMI status post fall that poses a threat to life or bodily function. His troponins are 1.16, 1.11, 0.96. He is currently on a heparin drip at 12 units/kg/hr. Started on ASA 81 mg PO QD, Lipitor 40 mg PO QD. Beta priyanka on hold due to bradycardia. Telemetry monitoring ordered. Cardiology on board. Patient is confused and combative this morning. On soft restraints. CT head ordered since he is on a heparin drip to rule out intracranial abnormalities. Hypoglycemia may also be contributing. Accuchecks ACHS ordered. Possible EtOH withdrawal? Attempted to call sister at [phone] but went to voicemdil. I have reviewed the following health consultant notes: Cardiology note reviewed. I have reviewed the results of the following tests: CBC, BMP, APTT, Echocardiogram as above. I have ordered the following tests: CT head ordered. Accuchecks ordered. APTT. I have discussed the care of this patient with the following independent historian: Case discussed extensively with RN. I have independently interpreted the following test below: I have discussed the management of this patient with the following physician: This patient has a high risk of morbidity due to the following reasons: Patient is on a heparin drip that requires intensive monitoring of APTT. Objective - Vital Signs Vital signs: Vital Signs Temp 98.2 F 05/17/23 04:00 Pulse 57 L 05/17/23 04:00 Resp 16 05/17/23 04:00 BP 151/73 05/17/23 04:00 Pulse Ox 98 05/17/23 04:00 FiO2 Intake & Output 05/16/23 05/17/23 05/17/23 18:59 06:59 18:59 Intake Total 240 Output Total 650 Balance 240 -650 Weight 58.967 kg Intake: Oral 240 Output: Urine 650 Other: Voiding Method Urinal # Voids 1 - Labs CBC & Chem 7: 05/17/23 09:34 05/17/23 09:34
--- NOTE | 2023-05-17 13:50 | P.PN ---
Subjective Progress Note Date: 05/17/23 History of present illness: This is an 83 year old male patient with no previous cardiac history. He states he's never had a cardiac catheterization, stress test, surgery. He has a past medical history of hypertension, hyperlipidemia and history of recent ERCP at [facility] in March. Patient states that yesterday he was walking all of a sudden his legs gave out on him and fell onto the table hitting his forehead. He couldn't get up and he had no power in his legs and he still can't bend or li ft his legs well. Patient denies having any chest pain. No shortness of breath, no palpitations, no cough, no fever or chills. Patient is seen today in the emergency center waiting for a bed on the cardiac stepdown unit. Patient denies history of smoking. His mother had history of VT and at age 65. Telemetry is sinus rhythm in the 40s. EKG sinus rhythm Chest x-ray: No acute findings Pelvic x-ray negative CAT scan of the head and cervical spine revealed no acute findings in the head and brain or cervical spine. CAT scan of the face reveals no acute fracture WBC 12.6, repeat 8.6, hemoglobin 12.4. INR 1.2. Troponins 1.16, 1.11, 0.969. BUN 33 creatinine 1.55. Urine drug screen was negative. Serum alcohol level less than 10. Home cardiac medications: Atenolol 100 mg daily 05/17 Patient is seen today in follow-up. Unfortunately patient has had a change in his mental condition and is now in restraints and has a safety technician at the bedside. Patient is unable to answer any questions seems to be appropriate. He does deny having chest pain. He is unable to take his oral medications at this time. Repeat blood work reveals WBC 12.1, hemoglobin 13.1, BUN 22 creatinine 1.17. Blood pressure 156/76, heart rate in the 50s to 90s Echocardiogram reveals mildly reduced LV systolic function at 45-50%. Physical examination: Gen: This is an 83-year-old male. He is resting in bed in restraints and safety technician at bedside. VS: reviewed HEENT: Ecchymosis to the right forehead, normocephalic. Pupils equal, round. Sclerae is anicteric. LUNGS: Clear to auscultation. No wheezes or rhonchi. No intercostal retractions. HEART: Regular rate and rhythm. No murmur. EXTREMITIES: No pedal edema. NEUROLOGICAL: Patient is confused. Assessment: Non-ST elevated myocardial infarction Bradycardia Weakness in the legs Hypertension Hyperlipidemia Metabolic encephalopathy Plan: Discontinue heparin drip Continue patient on aspirin 81 mg daily, atorvastatin 40 mg daily No beta priyanka due to bradycardia, may need to be reassessed as patient condition improves Due to patient's change in mental status and combative behavior, no further cardiac workup will be done at this time. Once patient is stabilized, this will be reevaluated and most likely patient can follow-up with Dr. Schulz in the office and workup will be done as an outpatient. Cardiology will sign off and follow on an as-needed basis. Nurse practitioner note has been reviewed, I agree with documented findings and plan of care. Patient was seen and examined. Objective - Vital Signs Vital signs: Vital Signs Temp 98.3 F 05/17/23 10:08 Pulse 77 05/17/23 11:05 Resp 16 05/17/23 11:05 BP 156/76 05/17/23 11:05 Pulse Ox 95 05/17/23 11:05 FiO2 Intake & Output 05/16/23 05/17/23 05/17/23 18:59 06:59 18:59 Intake Total 240 260 Output Total 650 Balance 240 -650 260 Weight 58.967 kg Intake: IV 10 Invasive Line 2 10 Intake, IV Titration 250 Amount Heparin Sod,Pork in 0.45% 250 NaCl 25,000 unit In 0.45 % NaCl 1 250ml.bag @ 12 UNITS/KG/HR 7.076 mls/hr IV .Q24H JOSE Rx#: [id number] Oral 240 Output: Urine 650 Other: Voiding Method Urinal Urinal # Voids 1 - Labs CBC & Chem 7: 05/17/23 09:34 05/17/23 09:34 Labs: Abnormal Lab Results - Last 24 Hours (Table) 05/17/23 05/17/23 05/17/23 Range/Units 09:34 09:34 09:34 WBC 12.1 H (3.8-10.6) k/uL RBC 4.04 L (4.30-5.90) m/uL APTT 49.0 H (22.0-30.0) sec Chloride 112 H (98-107) mmol/L Carbon Dioxide 15 L (22-30) mmol/L BUN 22 H (9-20) mg/dL Glucose 65 L (74-99) mg/dL
--- NOTE | 2023-05-17 14:39 | CT ---
EXAMINATION TYPE: CT angio head CT DLP: 684.8 mGycm, Automated exposure control for dose reduction was used. DATE OF EXAM: 05/17/2023 2:31 PM COMPARISON: CT brain C-spine 05/15/2023. CLINICAL INDICATION:Male, 83 years old with history of confusion; PHH, ams TECHNIQUE: Axially acquired helical CT angiogram of the head was obtained with contrast utilizing 75 cc of [id number] administered intravenously. Axial images are supplemented with 3D reconstructions wh ich were post-processed at an independent workstation. NASCET criteria used. FINDINGS: Limited examination due to motion artifact. No evidence of acute intracranial hemorrhage, mass effect, or midline shift. The ventricles, sulci, a nd cisterns are unremarkable. The visualized portions of the internal carotid arteries, middle cerebral arteries, anterior cerebral arteries, and posterior cerebral arteries are patent. Poor visualization of the petrous portion of t he right internal carotid artery. The basilar and vertebral arteries are patent. The vertebral arteries are codominant. IMPRESSION: Motion degraded examination. No evidence of high-grade stenosis or intracranial aneurysm within the visualized portions. Poor visu alization of the petrous portion of the right internal carotid artery.
[2023-05-17 16:34] LABS: Glucose,Whole Blood 83 mg/dL (70-110)
[2023-05-17 20:12] LABS: Glucose,Whole Blood 71 mg/dL (70-110)
[2023-05-17] MEDS: HEPARIN SODIUM,PORCINE/PF 5,000 UNIT/0.5 ML SYRINGE SQ SCH (20:12)
[2023-05-17 23:31] LABS: Glucose,Whole Blood 80 mg/dL (70-110)
[2023-05-18 06:14] LABS: Glucose,Whole Blood 76 mg/dL (70-110)
[2023-05-18] MEDS: HEPARIN SODIUM,PORCINE/PF 5,000 UNIT/0.5 ML SYRINGE SQ SCH ×2 (08:20→20:06)
[2023-05-18] MEDS: FINASTERIDE 5 MG TAB PO SCH (08:20)
[2023-05-18] MEDS: ASPIRIN 81 MG PO SCH (08:20)
[2023-05-18] MEDS: ATORVASTATIN 40 MG TAB PO SCH (08:20)
[2023-05-18] MEDS: FENOFIBRATE 160 MG TAB PO SCH (08:20)
[2023-05-18] MEDS: atenoloL 50 MG TAB PO SCH (08:20)
[2023-05-18] MEDS: TAMSULOSIN 0.4 MG CAP.ER.24H PO SCH ×2 (08:20→20:06)
[2023-05-18 12:06] LABS: Glucose,Whole Blood 80 mg/dL (70-110)
--- NOTE | 2023-05-18 14:55 | P.PN ---
Subjective Progress Note Date: 05/18/23 Patient is a 83-year-old male with a PMH of BPH and hypertension who presents to the emergency room after a fall. In the emergency room a pelvis x-ray was unremarkable. Chest x-ray was also unremarkable. Head and cervical spine CT revealed no acute abnormalities. Facial CT was unremarkable. EKG revealed sinus rhythm at [address]/T-wave changes noted as reviewed by me. Laboratory evaluation was remarkable for leukocytosis of 12.6, BUN 33, creatinine 1.5, and troponin 1.160. Patient was started on a heparin drip and admitted for non-ST elevation GA. 05/16 Patient seen and examined was seen in the ED. Troponins trended at 1.110 and 0.969. Currently on a heparin drip running at 12 units/kg/hr. He denies any chest pain, SOB, palpitations or lightheadedness. 05/17 Patient was seen and examined. Placed on soft restraints overnight for agitation. Patient is confused and combative. Sitter at bedside. Apparently, sister was called yesterday, patient had a similar episode during a recent h ospitalization. CBC shows WBC count of 12.1. APTT 49. BMP shows Cl 112, bicarb 15, BUN 22, glucose 65. Echocardiogram shows EF of 45%. 05/18 Patient was seen and examined. Family at bedside. His mentation has improved, he is no longer combative. Restraints and sitter has been discontinued. He continues to have confusion. Family denies any alcohol use. Per RN, patient has depth perception issues when trying to feed himself. Patient denies any chest pain. CTA head was done yesterday which was negative for acute CVA. Heparin drip was discontinued yesterday by Cardiology and they have signed off on the case. PT and OT recommends SNF which patient is agreeable for. POC glucose 71-94 over the past 24H. No new labs done today. General: non toxic, mild distress, appears at stated age Derm: warm, dry Head: atraumatic, normocephalic, symmetric Eyes: EOMI, no lid lag, anicteric sclera Cardiovascular: Bradycardic, no murmur Lungs: CTA bilateral, no rhonchi, no rales , no accessory muscle use Ext: no gross muscle atrophy, no edema, no contractures Neuro: CN 2-12 grossly intact. No focal neuro deficits Psych: Pleasantly confused. Acute metabolic encephalopathy Hypoglycemia NSTEMI Bradycardia Fall Kidney injury, acute versus chronic Resolved: Leukocytosis Based on my assessment of this patient, this patient meets a high complexity level of care. Patient has an acute diagnosis of NSTEMI status post fall that poses a threat to life or bodily function. His troponins are 1.16, 1.11, 0.96. Heparin drip discontinued by Cardiology, recommends outpatient follow up and no further workup. Started on ASA 81 mg PO QD, Lipitor 40 mg PO QD. Beta priyanka on hold due to bradycardia. Telemetry monitoring ordered. Patient continues to be confused. CT head negative for infarct or bleed. He seems to have depth perception issues when eating. We will obtain MRI brain. Pending insurance authorization for SNF. I have reviewed the following taxation consultant notes: Cardiology note reviewed. I have reviewed the results of the following tests: CTA head, POC glucose as above. I have ordered the following tests: MRI brain. A1c. Lipid panel. I have discussed the care of this patient with the following independent historian: Case discussed extensively with RN and multiple family members. I have independently interpreted the following test below: I have discussed the management of this patient with the following physician: Objective - Vital Signs Vital signs: Vital Signs Temp 98.0 F 05/18/23 08:04 Pulse 48 L 05/18/23 13:42 Resp 16 05/18/23 13:42 BP 133/62 05/18/23 12:16 Pulse Ox 97 05/18/23 12:16 FiO2 Intake & Output 05/17/23 05/18/23 05/18/23 18:59 06:59 18:59 Intake Total 270 250 120 Output Total 100 Balance 170 250 120 Intake: IV 20 20 Invasive Line 2 20 20 Intake, IV Titration 250 Amount Heparin Sod,Pork in 0.45% 250 NaCl 25,000 unit In 0.45 % NaCl 1 250ml.bag @ 12 UNITS/KG/HR 7.076 mls/hr IV .Q24H JOSE Rx#: [id number] Oral 230 120 Output: Urine 100 Other: Voiding Method Urinal Toilet Urinal # Voids 1 1 # Bowel Movements 1 - Labs CBC & Chem 7: 05/17/23 09:34 05/17/23 09:34
[2023-05-18 17:30] LABS: Glucose,Whole Blood 154 mg/dL (70-110)
[2023-05-18 19:50] LABS: Glucose,Whole Blood 91 mg/dL (70-110)
[2023-05-19 06:02] LABS: Glucose,Whole Blood 82 mg/dL (70-110)
[2023-05-19] MEDS: atenoloL 50 MG TAB PO SCH (08:27)
[2023-05-19] MEDS: FINASTERIDE 5 MG TAB PO SCH (08:31)
[2023-05-19] MEDS: ASPIRIN 81 MG PO SCH (08:31)
[2023-05-19] MEDS: FENOFIBRATE 160 MG TAB PO SCH (08:31)
[2023-05-19] MEDS: HEPARIN SODIUM,PORCINE/PF 5,000 UNIT/0.5 ML SYRINGE SQ SCH ×2 (08:31→20:19)
[2023-05-19] MEDS: TAMSULOSIN 0.4 MG CAP.ER.24H PO SCH ×2 (08:31→20:19)
[2023-05-19] MEDS: ATORVASTATIN 40 MG TAB PO SCH (08:31)
[2023-05-19 11:15] LABS: Chol/HDL Ratio 3.37 Ratio; LDL Cholesterol,Calculated 57.4 mg/dL (0.0-131.0)
[2023-05-19 11:16] VITALS: RESP 16
[2023-05-19 12:02] LABS: Glucose,Whole Blood 132 mg/dL (70-110)
--- NOTE | 2023-05-19 12:21 | P.CNOR ---
History of Present Illness - [facility] Consult date: 05/19/23 Requesting physician: Sebastien Rivera Consult reason: other (cervical stenosis) History of present illness: Patient is an 83-year-old male who presents to the emergency department [facility] on 05/15/2023 status post fall at home. Patient was brought in by EMS. Patient was seen at bedside this morning as orthopedics was consulted for cervical stenosis. Patient says before he presented to the hospital he was in his apartment in [place] when he said his legs gave out and he fell to the ground. He says he did hit the left side of his head. Patient denies losing consciousness. Currently patient denies any other changes. Patient denies any orthopedic complaints at this time. Patient does say sometimes his legs do feel weak. Patient says he has had both knees scoped in the past. Patient denies any previous orthopedic spine surgeries. Patient currently states she is not having neck pain. Patient states sometimes when he does some work at home and has to bend over he can only bend over for a couple minutes before his low back pain gets to the point where he needs stand up. Patient says he has seen a chiropractor in the past for some of his back issues. Patient mentions the right fifth digit sometimes goes numb on him and it will get very cold. Patient denies any upper or lower extremity radiculopathies. Patient denies chest pain, fever, shortness of breath, nausea, vomiting, change in vision, loss of bowel/bladder control. Past Medical History Past Medical History: Hyperlipidemia, Hypertension, Prostate Disorder History of Any Multi-Drug Resistant Organisms: None Reported Additional Past Surgical History / Comment(s): gall stones removed 03/2023 Past Anesthesia/Blood Transfusion Reactions: No Reported Reaction Past Psychological History: Depression Smoking Status: Never smoker Past Alcohol Use History: None Reported Past Drug Use History: None Reported - Past Family History Mother History Unknown: Yes Family Medical History: Hypertension Medications and Allergies Home Medications Medication Instructions Recorded Confirmed Type Fenofibrate [Lofibra] 160 mg PO DAILY 05/15/23 05/16/23 History Finasteride [Proscar] 5 mg PO DAILY 05/15/23 05/16/23 History Tamsulosin [Flomax] 0.4 mg PO BID 05/15/23 05/16/23 History Aspirin 81 mg PO DAILY tab 05/19/23 Rx Atorvastatin [Lipitor] 40 mg PO DAILY tab 05/19/23 Rx atenoloL [Tenormin] 50 mg PO DAILY tab 05/19/23 Rx Allergies Allergy/AdvReac Type Severity Reaction Status Date / Time No Known Allergies Allergy Verified 05/15/23 22:44 Physical Examination Inspection: Negative for any open fractures, significant erythema/open wounds. Positive for some ecchymosis around the forehead Sensation: Equal, symmetric, bilaterally intact throughout upper and lower ext remities Palpation: Nontender to palpation throughout exam. Range of motion: Patient has full range of motion in bilateral upper extremities and shoulder forward elevation, abduction, external and internal rotation. Patient has full range of motion in elbows in flexion and extension bilaterally and wrist action/extension. Patient has full range of motion bilateral lower extremities and hip flexion/extension and knee flexion/extension and ankle dorsi/plantar flexion bilaterally. Motor: 4+/5 in all major motor groups in bilateral upper and lower extremities Special tests: Negative Homans bilaterally. Negative César bilaterally. Negative clonus bilaterally Neurovascular status: Radial pulses intact, 2+ bilaterally. Cap refill under 3 seconds in digits of upper extremities Results - Labs Labs: Abnormal Lab Results - Last 24 Hours (Table) 05/18/23 05/19/23 Range/Units 17:28 06:54 POC Glucose (mg/dL) 154 H (70-110) mg/dL HDL Cholesterol 35.00 L (40.00-60.00) mg/dL H & H 05/15/23 05/16/23 05/17/23 Range/Units 21:30 05:32 09:34 Hgb 12.7 L 12.4 L 13.1 (13.0-17.5) gm/dL Hct 37.5 L 37.5 L 39.3 (39.0-53.0) % Coagulation 05/15/23 05/16/23 Range/Units 21:30 05:32 INR 1.2 H 1.2 H (<1.2) Result Diagrams: 05/17/23 09:34 05/17/23 09:34 - Diagnostic results CT scan - cervical: report reviewed (Cervical spine CT image and report was reviewed. There is evidence cervical spondylosis as well as degenerative disc disease throughout the cervical spine. Negative for any fractures. Mild retrolisthesis of C5 on C6 and bilateral neural foraminal stenosis from C5 through C7.), image reviewed Assessment and Plan Assessment: 1. C5-C7 neuroforaminal stenosis Plan: 1. C5-C7 neuroforaminal stenosis - Cervical spine CT image and report was reviewed. There is evidence of cervical spondylosis as well as degenerative disc disease throughout the cervical spine. Negative for any fractures. Mild retrolisthesis of C5 on C6 and bilateral neural foraminal stenosis from C5 through C7. Patient does not have any neck pain on exam. Negative César's bilaterally. Patient does have good range of motion and strength in bilateral upper extremities on exam. At this time we are not recommending any further cervical imaging. PT/OT daily. Recommend pain medication as needed. Patient may benefit from IV steroids. At this time we are not recommending any emerge nt/urgent orthopedic surgical intervention. We do recommend patient to follow- up in the office for further evaluation as needed. Orthopedics is signing off at this time. Please do not hesitate to contact us for any further questions. 2. Appreciate medical management 3. Pain management - Tylenol 4. DVT prophylaxis - heparin; aspirin 5. GI prophylaxis recs 6. PT/OT - weightbearing as tolerated with walker and assistance 7. Encourage incentive spirometer use 8. Appreciate consult Time with Patient: Less than 30
[2023-05-19 16:16] LABS: Glucose,Whole Blood 129 mg/dL (70-110)
--- NOTE | 2023-05-19 17:00 | P.PN ---
Subjective Progress Note Date: 05/19/23 Patient is a 83-year-old male with a PMH of BPH and hypertension who presents to the emergency room after a fall. In the emergency room a pelvis x-ray was unremarkable. Chest x-ray was also unremarkable. Head and cervical spine CT revealed no acute abnormalities. Facial CT was unremarkable. EKG revealed sinus rhythm at [address]/T-wave changes noted as reviewed by me. Laboratory evaluation was remarkable for leukocytosis of 12.6, BUN 33, creatinine 1.5, and troponin 1.160. Patient was started on a heparin drip and admitted for non-ST elevation [place]. 05/16 Patient seen and examined was seen in the ED. Troponins trended at 1.110 and 0.969. Currently on a heparin drip running at 12 units/kg/hr. He denies any chest pain, SOB, palpitations or lightheadedness. 05/17 Patient was seen and examined. Placed on soft restraints overnight for agitation. Patient is confused and combative. Sitter at bedside. Apparently, sister was called yesterday, patient had a similar episode during a recent h ospitalization. CBC shows WBC count of 12.1. APTT 49. BMP shows Cl 112, bicarb 15, BUN 22, glucose 65. Echocardiogram shows EF of 45%. 05/18 Patient was seen and examined. Family at bedside. His mentation has improved, he is no longer combative. Restraints and sitter has been discontinued. He continues to have confusion. Family denies any alcohol use. Per RN, patient has depth perception issues when trying to feed himself. Patient denies any chest pain. CTA head was done yesterday which was negative for acute CVA. Heparin drip was discontinued yesterday by Cardiology and they have signed off on the case. PT and OT recommends SNF which patient is agreeable for. POC glucose 71-94 over the past 24H. No new labs done today. 05/19 Patient was seen and examined. No acute events overnight. He is alert and oriented x 3. He has no issues with depth perception at this time. 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 He is accepted to SNF but will likely be delayed until tomorrow until MRI brain and MRI C-spine can be done. A1c 4.9. Lipid panel shows LDL 57.4. General: non toxic, no distress, appears at stated age Derm: warm, dry Head: atraumatic, normocephalic, symmetric Eyes: EOMI, no lid lag, anicteric sclera Cardiovascular: Bradycardic, no murmur Lungs: CTA bilateral, no rhonchi, no rales , no accessory muscle use Ext: no gross muscle atrophy, no edema, no contractures Neuro: CN 2-12 grossly intact. No focal neuro deficits Psych: Pleasantly confused. NSTEMI Cervical neural foraminal stenosis Bradycardia Fall Kidney injury, acute versus chronic Resolved: Leukocytosis, Hypoglycemia, AMS Based on my assessment of this patient, this patient meets a moderate complexity level of care. Patient has an acute diagnosis of NSTEMI status post fall that poses a threat to life or bodily function. His troponins are 1.16, 1.11, 0.96. Heparin drip discontinued by Cardiology, recommends outpatient follow up and no further workup. Started on ASA 81 mg PO QD, Lipitor 40 mg PO QD. Beta priyanka on hold due to bradycardia. Telemetry monitoring ordered. Patient continues to be confused. CT head negative for infarct or bleed. He seems to have depth perception issues when eating. MRI brain and C-spine pending. Appreciate Orthopedic surgery recommendations. Insurance authorization accepted to SNF, however likely delay until tomorrow for MRI brain and C-spine to be performed. I have reviewed the following [employer] sales consultant notes: Orthopedic note reviewed. I have reviewed the results of the following tests: A1c. Lipid panel. I have ordered the following tests: MRI brain pending. Agree with MRI C-spine. I have discussed the care of this patient with the following independent histor frdey: I have independently interpreted the following test below: I have discussed the management of this patient with the following physician: Objective - Vital Signs Vital signs: Vital Signs Temp 97.7 F 05/19/23 15:18 Pulse 64 05/19/23 15:18 Resp 16 05/19/23 15:18 BP 137/72 05/19/23 15:18 Pulse Ox 98 05/19/23 15:18 FiO2 Intake & Output 05/18/23 05/19/23 05/19/23 18:59 06:59 18:59 Intake Total 120 Output Total 125 600 Balance 120 -125 -600 Intake: Oral 120 Output: Urine 125 600 Other: Voiding Method Toilet Toilet Urinal Urinal # Voids 1 1 # Bowel Movements 1 - Labs CBC & Chem 7: 05/17/23 09:34 05/17/23 09:34 Labs: Abnormal Lab Results - Last 24 Hours (Table) 05/18/23 05/19/23 05/19/23 Range/Units 17:28 06:54 12:00 POC Glucose (mg/dL) 154 H 132 H (70-110) mg/dL HDL Cholesterol 35.00 L (40.00-60.00) mg/dL 05/19/23 Range/Units 16:15 POC Glucose (mg/dL) 129 H (70-110) mg/dL HDL Cholesterol (40.00-60.00) mg/dL
--- NOTE | 2023-05-19 17:38 | MR ---
EXAMINATION TYPE: MR cervical spine wo con DATE OF EXAM: 05/19/2023 INDICATION: Patient age: Male; 83 years old; Reason for study: freq falls, r/o stenosis; PHH. Frequent falls, R/O stenosis COMPARISON: None TECHNIQUE: Multi planar, multi sequence imaging was performed utilizing: T1-weighted, T2-weighted, an d turbo inversion recovery imaging of the cervical spine. IV Contrast: None FINDINGS: Alignment: The cervical vertebral bodies have preserved heights. Alignment is within normal limits gi shwetha patient positioning. Bones: Multilevel degeneration changes with disc space narrowing and osteophyte formation. Facet and uncovertebral joint arthropathy seen throughout the spine. Cord: The spinal cord is unremarkable with regards to their signal intensity and morphology. Discs: Multilevel disc desiccation is present. Motion limited exam. C2-C3: No significant disc pathology. The spinal canal is patent. Bilateral facet and uncovertebral joint arthropathy are present with mild bilateral neural foraminal stenosis. C3-C4: A disc osteophyte complex is present with mild spinal canal stenosis. Bilateral facet and unc overtebral joint arthropathy are present with severe right and mild left neural foraminal stenosis. C4-C5: No significant disc pathology. The spinal canal is patent. Bilateral facet and uncovertebral joint arthropathy are present with severe right and mild to moderate left neural foraminal stenosis. C5-C6: A disc osteophyte complex is present with mild spinal canal stenosis. Bilateral facet and unc overtebral joint arthropathy are present with severe bilateral neural foraminal stenosis. C6-C7: A disc osteophyte complex is present with mild spinal canal stenosis. Bilateral facet and unc overtebral joint arthropathy are present with severe bilateral neural foraminal stenosis. C7-T1: No significant disc pathology. The spinal canal is patent. No neural foraminal stenosis. Other: None. IMPRESSION: 1. No evidence for disc herniation or significant spinal canal stenosis. 2. Motion limited exam, Moderate to severe disc degeneration with associated osteoarthritic changes w ith varying degrees of neural foraminal stenosis as described above.
--- NOTE | 2023-05-19 17:47 | MR ---
EXAMINATION TYPE: MR brain wo con DATE OF EXAM: 05/19/2023 5:17 PM COMPARISON: CT 05/17/2023. CLINICAL INDICATION:Male, 83 years old with history of r/o CVA; R/O CVA TECHNIQUE: Multi planar, multi sequence imaging was performed through the brain including: T1, T2, In version recovery, Diffusion weighted imaging, and gradient echo imaging. No gadolinium was given. FINDINGS: Ventricular dilation proportion to cerebral atrophy. Scattered foci of high T2 signal intensity are s een within the periventricular white matter. Midline structures show no abnormality. Diffusion-weight ed imaging shows no evidence of restricted diffusion. The susceptibility weighted images do not revea l any evidence for micro-hemorrhage. The bone marrow signal is within normal limits. Paranasal sinuses and mastoid air cells: No significant paranasal sinus disease. Visualized orbits: Orbital contents are intact. IMPRESSION: 1. No evidence of intracranial mass or acute/subacute infarct. 2. Nonspecific white matter changes, likely secondary to small vessel ischemic disease.
[2023-05-19 20:25] LABS: Glucose,Whole Blood 139 mg/dL (70-110)
[2023-05-20 06:14] LABS: Glucose,Whole Blood 106 mg/dL (70-110)
[2023-05-20] MEDS: ASPIRIN 81 MG PO SCH (09:02)
[2023-05-20] MEDS: atenoloL 50 MG TAB PO SCH (09:02)
[2023-05-20] MEDS: TAMSULOSIN 0.4 MG CAP.ER.24H PO SCH (09:02)
[2023-05-20] MEDS: FINASTERIDE 5 MG TAB PO SCH (09:02)
[2023-05-20] MEDS: HEPARIN SODIUM,PORCINE/PF 5,000 UNIT/0.5 ML SYRINGE SQ SCH ×2 (09:02→09:42)
[2023-05-20] MEDS: ATORVASTATIN 40 MG TAB PO SCH (09:02)
[2023-05-20] MEDS: FENOFIBRATE 160 MG TAB PO SCH (09:02)
--- NOTE | 2023-05-20 09:34 | P.PN ---
Subjective Progress Note Date: 05/20/23 Principal diagnosis: Cervical stenosis Patient is examined today at bedside, he is resting in his hospital bed. Patient denies any neck pain at this time. No acute events overnight. Objective - Vital Signs Vital signs: Vital Signs Temp 97.7 F 05/20/23 08:57 Pulse 65 05/20/23 08:57 Resp 16 05/20/23 08:57 BP 129/69 05/20/23 08:57 Pulse Ox 99 05/20/23 08:57 FiO2 Intake & Output 05/19/23 05/20/23 05/20/23 18:59 06:59 18:59 Intake Total 140 Output Total 600 500 Balance -600 -500 140 Intake: IV 20 Invasive Line 2 10 Invasive Line 3 10 Oral 120 Output: Urine 600 500 Other: Voiding Method Toilet Urinal Urinal Urinal # Voids 1 - Exam Inspection: Negative for any open fractures, significant erythema/open wounds. Positive for some ecchymosis around the forehead Sensation: Equal, symmetric, bilaterally intact throughout upper and lower extremities Palpation: Nontender to palpation throughout exam. Range of motion: Patient has full range of motion in bilateral upper extremities and shoulder forward elevation, abduction, external and internal rotation. Pat ient has full range of motion in elbows in flexion and extension bilaterally and wrist action/extension. Patient has full range of motion bilateral lower extremities and hip flexion/extension and knee flexion/extension and ankle dorsi/plantar flexion bilaterally. Motor: 4+/5 in all major motor groups in bilateral upper and lower extremities Special tests: Negative Homans bilaterally. Negative César bilaterally. Negative clonus bilaterally Neurovascular status: Radial pulses intact, 2+ bilaterally. Cap refill under 3 seconds in digits of upper extremities - Labs CBC & Chem 7: 05/17/23 09:34 05/17/23 09:34 Labs: Abnormal Lab Results - Last 24 Hours (Table) 05/19/23 05/19/23 05/19/23 Range/Units 06:54 12:00 16:15 POC Glucose (mg/dL) 132 H 129 H (70-110) mg/dL HDL Cholesterol 35.00 L (40.00-60.00) mg/dL 05/19/23 Range/Units 20:22 POC Glucose (mg/dL) 139 H (70-110) mg/dL HDL Cholesterol (40.00-60.00) mg/dL Assessment and Plan Assessment: Multilevel cervical spondylosis Multilevel cervical facet arthropathy with varying degrees of neural foraminal stenosis History of falls Other medical comorbidities Plan: I was able to review the MRI with Dr. Connors, no evidence of significant central canal stenosis that would require urgent or emergent orthopedic spine surgical intervention. Recommending continuation of conservative measures, this including Tylenol for discomfort Weight-bear as tolerated, recommending use of a walker at all times DVT prophylaxis per primary medical service Discharge planning: On an orthopedic standpoint patient is stable for discharge and follow-up on an as needed basis with Dr. Connors in the outpatient setting
[2023-05-20 11:47] LABS: Glucose,Whole Blood 145 mg/dL (70-110)
[2023-05-20 11:59] VITALS: BP 131/80; PULSE 67; TEMP 97.4
--- NOTE | 2023-05-20 12:34 | P.DS ---
Providers Date of admission: 05/16/23 00:01 Expected date of discharge: 05/20/23 Attending physician: Jayson Pyle MD Consults: 05/16/23 00:01 Consult Physician Routine Consulting Provider: [facility] Consult Reason/Comments: NSTEMI Do you want consulting provider notified?: Yes, Notify in am 05/18/23 14:25 Consult Physician Routine Consulting Provider: Og Connors Consult Reason/Comments: cervical stenosis Do you want consulting provider notified?: Yes Primary care physician: Lito Corbett [facility] Course: Patient is a 83-year-old male with a PMH of BPH and hypertension who presents to the emergency room after a fall. In the emergency room a pelvis x-ray was unremarkable. Chest x-ray was also unremarkable. Head and cervical spine CT revealed no acute abnormalities. Facial CT was unremarkable. EKG revealed sinus rhythm at [address]/T-wave changes noted as reviewed by me. Laboratory evaluation was remarkable for leukocytosis of 12.6, BUN 33, creatinine 1.5, and troponin 1.160. Patient was started on a heparin drip and admitted for non-ST elevation [place]. 05/16 Patient seen and examined was seen in the ED. Troponins trended at 1.110 and 0.969. Currently on a heparin drip running at 12 units/kg/hr. He denies any chest pain, SOB, palpitations or lightheadedness. 05/17 Patient was seen and examined. Placed on soft restraints overnight for agitation. Patient is confused and combative. Sitter at bedside. Apparently, sister was called yesterday, patient had a similar episode during a recent hospitalization. CBC shows WBC count of 12.1. APTT 49. BMP shows Cl 112, bicarb 15, BUN 22, glucose 65. Echocardiogram shows EF of 45%. 05/18 Patient was seen and examined. Family at bedside. His mentation has improved, he is no longer combative. Restraints and sitter has been discontinued. He continues to have confusion. Family denies any alcohol use. Per RN, patient has depth perception issues when trying to feed himself. Patient d enies any chest pain. CTA head was done yesterday which was negative for acute CVA. Heparin drip was discontinued yesterday by Cardiology and they have signed off on the case. PT and OT recommends SNF which patient is agreeable for. POC glucose 71-94 over the past 24H. No new labs done today. 05/19 Patient was seen and examined. No acute events overnight. He is alert and oriented x 3. He has no issues with depth perception at this time. 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 He is accepted to SNF but will likely be delayed until tomorrow until MRI brain and MRI C-spine can be done. A1c 4.9. Lipid panel shows LDL 57.4. 05/20 Patient was seen and examined. He reports to chest pain, SOB or palpitations. No confusion. MRI brain and C-spine negative for acute pathology. Anticipate discharge to care home facility today. Atenolol will be discontinued due to bradycardia. Continue aspirin and Lipitor. Advised to follow-up with PCP within 1-2 days. Follow-up with cardiology within 1 week. Patient verbalized understanding of the plan. Pertinent studies as above. General: non toxic, no distress, appears at stated age Derm: warm, dry Head: atraumatic, normocephalic, symmetric Eyes: EOMI, no lid lag, anicteric sclera Cardiovascular: Bradycardic, no murmur Lungs: CTA bilateral, no rhonchi, no rales , no accessory muscle use Ext: no gross muscle atrophy, no edema, no contractures Neuro: CN 2-12 grossly intact. No focal neuro deficits Psych: Alert and oriented 3 Discharge diagnosis: Non-ST elevation [place] Bradycardia Fall Kidney injury, acute versus chronic Resolved: Leukocytosis, Hypoglycemia, AMS This complex discharge took 35 minutes to complete. Patient Condition at Discharge: Stable Plan - Discharge Summary Discharge Rx Participant: No New Discharge Prescriptions: New Aspirin 81 mg PO DAILY tab Atorvastatin [Lipitor] 40 mg PO DAILY tab Continue Finasteride [Proscar] 5 mg PO DAILY Fenofibrate [Lofibra] 160 mg PO DAILY Tamsulosin [Flomax] 0.4 mg PO BID Discontinued atenoloL 100 mg PO DAILY Discharge Medication List Fenofibrate [Lofibra] 160 mg PO DAILY 05/15/23 [History] Finasteride [Proscar] 5 mg PO DAILY 05/15/23 [History] Tamsulosin [Flomax] 0.4 mg PO BID 05/15/23 [History] Aspirin 81 mg PO DAILY tab 05/19/23 [Rx] Atorvastatin [Lipitor] 40 mg PO DAILY tab 05/19/23 [Rx] Follow up Appointment(s)/Referral(s): Lito Bassett MD [Primary Care Provider] - 1-2 days Holland Alegre MD [STAFF PHYSICIAN] - 1 Week Og Connors DO [Doctor of Osteopathic Medicine] - As Needed Activity/Diet/Wound Care/Special Instructions: Diet: Cardiac Follow up PCP within 1-2 days of discharge. Follow up Orthopedic surgery within 1 week of discharge. Follow up Cardiology within 1 week of discharge. Discharge Disposition: TRANSFER TO SNF/ECF
== END 2023-05-20 13:11 | DRG 280 ==
LOC: EC 18:50 → 3SCARD 05-16 00:01
PROVIDERS: ADMIT Internal Medicine; ATTEND Internal Medicine
DX: I21.4 Non-ST elevation (NSTEMI) myocardial infarction (principal); G93.41 Metabolic encephalopathy; N17.9 Acute kidney failure, unspecified; F32.A Depression, unspecified; I10 Essential (primary) hypertension; M47.812 Spondylosis without myelopathy or radiculopathy, cervical region; M48.02 Spinal stenosis, cervical region; N40.0 Benign prostatic hyperplasia without lower urinary tract symptoms; E78.5 Hyperlipidemia, unspecified; I25.10 Atherosclerotic heart disease of native coronary artery without angina pectoris; W19.XXXA Unspecified fall, initial encounter; E16.2 Hypoglycemia, unspecified; Z78.1 Physical restraint status; Z79.82 Long term (current) use of aspirin; Z79.899 Other long term (current) drug therapy; Z82.49 Family history of ischemic heart disease and other diseases of the circulatory system; Z91.81 History of falling
CPT/HCPCS: 36415; 70450; 70486; 70496; 70551; 71045; 72125; 72141; 72170; 80048; 80053; 80061; 80306; 80320; 81001; 83036; 83605; 84484; 85025; 85027; 85610; 85730; 86850; 86900; 86901; 87635; 93005; 93306; 94760; 96365; 96366; 99285

== ENCOUNTER → 2023-08-10 | Outpatient (CLI) | payer MEDICARE | END | disposition home or self-care (01) | LOC: LABWHC1 13:00 | PROVIDERS: ATTEND Psychiatry & Neurology Neurology | DX: I48.91 Unspecified atrial fibrillation (principal); E78.5 Hyperlipidemia, unspecified | CPT/HCPCS: 36415; 93005 ==

== ENCOUNTER 2024-09-07 15:26 | Inpatient (IN) | payer MEDICARE ==
--- NOTE | 2024-09-07 15:35 | ED ---
General Adult HPI - General Chief complaint: Fall Stated complaint: fall Time Seen by Provider: 09/07/24 15:30 Source: patient, RN notes reviewed, old records reviewed Mode of arrival: EMS Limitations: no limitations - History of Present Illness Initial comments: 84-year-old male presenting status post fall which occurred at approximately 5 AM this morning. Patient was unable to call 911 at the time. He is presenting approximately 10 hours later. He states that he had bilateral foot numbness which seems to be improving. He states he did have similar accident about 1 year ago where he had fallen and had numbness to both legs. He denies any pain complaints at this time. He was transported by paramedics with c-spine precautions. Patient denies loss consciousness. Denies anticoagulation. There was head trauma. - Related Data Home Medications Medication Instructions Recorded Confirmed Fenofibrate [Lofibra] 160 mg PO DAILY 05/15/23 09/07/24 Tamsulosin [Flomax] 0.4 mg PO BID 05/15/23 09/07/24 Atorvastatin [Lipitor] 40 mg PO HS 09/07/24 09/07/24 Cholecalciferol (Vitamin D3) 50 mcg PO DAILY 09/07/24 09/07/24 [Vitamin D3 (50 Mcg = 2000 Iu)] Escitalopram [Lexapro] 10 mg PO DAILY 09/07/24 09/07/24 Metoprolol Succinate (ER) [Toprol 25 mg PO DAILY 09/07/24 09/07/24 Xl] Mv-Min/Folic/K1/Lycopen/Lutein 1 tab PO DAILY 09/07/24 09/07/24 [Centrum Silver Men Tablet] QUEtiapine XR [SEROquel XR] 50 mg PO HS 09/07/24 09/07/24 Previous Rx's Medication Instructions Recorded Aspirin 81 mg PO DAILY tab 05/19/23 Allergies Allergy/AdvReac Type Severity Reaction Status Date / Time No Known Allergies Allergy Verified 09/07/24 16:21 Review of Systems ROS Statement: Those systems with pertinent positive or pertinent negative responses have been documented in the HPI. ROS Other: All systems not noted in ROS Statement are negative. Past Medical History Past Medical History: Hyperlipidemia, Hypertension, Osteoarthritis (OA), Prostate Disorder History of Any Multi-Drug Resistant Organisms: None Reported Past Surgical History: Joint Replacement, Orthopedic Surgery Additional Past Surgical History / Comment(s): gall stones removed 03/2023 Past Anesthesia/Blood Transfusion Reactions: No Reported Reaction Past Psychological History: Depression Smoking Status: Never smoker Past Alcohol Use History: None Reported Past Drug Use History: None Reported - Past Family History Mother History Unknown: Yes Family Medical History: Hypertension General Exam Limitations: no limitations General appearance: alert, in no apparent distress Head exam: Present: atraumatic, normocephalic Eye exam: Present: normal appearance, PERRL, EOMI Neck exam: Present: other (C-collar) Respiratory exam: Present: normal lung sounds bilaterally. Absent: respiratory distress Cardiovascular Exam: Present: regular rate, normal rhythm GI/Abdominal exam: Present: soft. Absent: distended, tenderness, guarding Back exam: Present: other (Abrasion to the mid thoracic spine) Neurological exam: Present: alert, oriented X3, CN II-XII intact, other (5 out of 5 strength in the lower extremities, sensation grossly intact.). Absent: motor sensory deficit Psychiatric exam: Present: normal affect, normal mood Skin exam: Present: warm, dry Course Vital Signs 09/07/24 09/07/24 09/07/24 15:28 15:32 16:32 Temperature 97.1 F L Pulse Rate 83 70 68 Respiratory 20 20 16 Rate Blood Pressure 150/82 150/60 150/60 O2 Sat by Pulse 99 99 98 Oximetry Medical Decision Making - Medical Decision Making Was pt. sent in by a medical professional or institution (MELISSA Mcdowell, [employer], urgent care, hospital, or group home...) When possible be specific @ -No Did you speak to anyone other than the patient for history (EMS, parent, family, police, friend...)? What history was obtained from this source @ -No Did you review nursing and triage notes (agree or disagree)? Why? @ -I reviewed and agree with nursing and triage notes Were old charts reviewed (outside hosp., previous admission, EMS record, old EKG, old radiological studies, urgent care reports/EKG's, group home records)? Report findings @ -No old charts were reviewed Differential Diagnosis (chest pain, altered mental status, abdominal pain women, abdominal pain men, vaginal bleeding, weakness, fever, dyspnea, syncope, headache, dizziness, GI bleed, back pain, seizure, CVA, palpatations, mental health, musculoskeletal)? @ -Not applicable EKG interpreted by me (3pts min.). @EKG: Sinus rhythm with PVC rate of 88, IN interval 152, QRS duration 96, QTc [address] segment elevation. X-rays interpreted by me (1pt min.). @Strays of the pelvis, chest, and thoracic spine are obtained, no acute bony abnormality identified. CT interpreted by me (1pt min.). @ -None done U/S interpreted by me (1pt. min.). @ -None done What testing was considered but not performed or refused? (CT, X-rays, U/S, labs)? Why? @ -None What meds were considered but not given or refused? Why? @ -None Did you discuss the management of the patient with other professionals (rafi mason i.e. , PA, [employer], lab, RT, psych nurse, adoption social worker, animal taxonomist, teacher, district resource officer, registered nurse hh case manager)? Give summary @ -[Dr. Hutchins Was smoking cessation discussed for >3mins.? @ -No Was critical care preformed (if so, how long)? @ -No Were there social determinants of health that impacted care today? How? (Homelessness, low income, unemployed, alcoholism, drug addiction, transportation, low edu. Level, literacy, decrease access to med. care, [facility], rehab)? @ -No Was there de-escalation of care discussed even if they declined (Discuss DNR or withdrawal of care, Hospice)? DNR status @ -No What co-morbidities impacted this encounter? (DM, HTN, Smoking, COPD, CAD, Cancer, CVA, ARF, Chemo, Hep., AIDS, mental health diagnosis, sleep apnea, morbid obesity)? @ -None Was patient admitted / discharged? Hospital course, mention meds given and route, prescriptions, significant lab abnormalities, going to OR and other pertinent info. @ -84-year-old male fall at home approximately 10 hours prior to arrival. Imaging including CT brain, cervical spine, chest x-ray pelvis x-ray and th oracic spine x-rays are negative for traumatic injury. Patient has a mild leukocytosis, normal electrolytes and kidney function. His creatinine kinase is elevated at 4000 consistent with rhabdomyolysis. Patient will be admitted for IV hydration. Case discussed with sound physician group. Undiagnosed new problem with uncertain prognosis? @ -No Drug Therapy requiring intensive monitoring for toxicity (Heparin, Nitro, Insulin, Cardizem)? @ -No Were any procedures done? @ -No Diagnosis/symptom? @Rhabdomyolysis, dehydration, fall Acute, or Chronic, or Acute on Chronic? @ -[Acute Uncomplicated (without systemic symptoms) or Complicated (systemic symptoms)? @ -Default Side effects of treatment? @ -No Exacerbation, Progression, or Severe Exacerbation? @ -No Poses a threat to life or bodily function? How? (Chest pain, USA, HI, pneumonia, PE, COPD, DKA, ARF, appy, cholecystitis, CVA, Diverticulitis, Homicidal, Suicidal, threat to staff... and all critical care pts) @ -[Yes, kidney injury - Lab Data Result diagrams: 09/07/24 15:30 09/07/24 15:30 Lab Results 09/07/24 09/07/24 09/07/24 Range/Units 15:30 15:30 15:30 WBC 13.4 H (3.8-10.6) k/uL RBC 3.99 L (4.30-5.90) m/uL Hgb 13.2 (13.0-17.5) gm/dL Hct 40.4 (39.0-53.0) % MCV 101.3 H (80.0-100.0) fL MCH 33.0 (25.0-35.0) pg MCHC 32.6 (31.0-37.0) g/dL RDW 13.2 (11.5-15.5) % Plt Count 174 (150-450) k/uL MPV 7.9 Neutrophils % 88 % Lymphocytes % 6 % Monocytes % 5 % Eosinophils % 0 % Basophils % 0 % Neutrophils # 11.8 H (1.3-7.7) k/uL Lymphocytes # 0.8 L (1.0-4.8) k/uL Monocytes # 0.6 (0-1.0) k/uL Eosinophils # 0.0 (0-0.7) k/uL Basophils # 0.0 (0-0.2) k/uL PT 12.4 (10.0-12.5) sec INR 1.2 H (<1.2) APTT 25.8 (22.0-30.0) sec Sodium (137-145) mmol/L Potassium (3.5-5.1) mmol/L Chloride (98-107) mmol/L Carbon Dioxide (22-30) mmol/L Anion Gap mmol/L BUN (9-20) mg/dL Creatinine (0.66-1.25) mg/dL Est GFR (CKD-EPI)AfAm (>60 ml/min/1.73 sqM) Est GFR (CKD-EPI)NonAf (>60 ml/min/1.73 sqM) Glucose (74-99) mg/dL Calcium (8.4-10.2) mg/dL Total Bilirubin (0.2-1.3) mg/dL AST (17-59) U/L ALT (4-49) U/L Alkaline Phosphatase (38-126) U/L Creatine Kinase (55-170) U/L Total Protein (6.3-8.2) g/dL Albumin (3.5-5.0) g/dL Urine Color Yellow Urine Appearance Cloudy (Clear) Urine pH 6.0 (5.0-8.0) Ur Specific [place] 1.020 (1.001-1.035) Urine Protein Trace H (Negative) Urine Glucose (UA) Negative (Negative) Urine Ketones Negative (Negative) Urine Blood Small H (Negative) Urine Nitrite Negative (Negative) Urine Bilirubin Negative (Negative) Urine Urobilinogen <2.0 (<2.0) mg/dL Ur Leukocyte Esterase Negative (Negative) Urine RBC 1 (0-5) /hpf Urine WBC 3 (0-5) /hpf Amorphous Sediment Few H (None) /hpf Urine Mucus Rare H (None) /hpf Urine Opiates Screen Detected H (NotDetected) Ur Oxycodone Screen Not Detected (NotDetected) Urine Methadone Screen Not Detected (NotDetected) Ur Barbiturates Screen Not Detected (NotDetected) U Tricyclic Antidepress Detected H (NotDetected) Ur Phencyclidine Scrn Not Detected (NotDetected) Ur Amphetamines Screen Not Detected (NotDetected) U Methamphetamines Scrn Not Detected (NotDetected) U Benzodiazepines Scrn Not Detected (NotDetected) Urine Cocaine Screen Not Detected (NotDetected) U Marijuana (THC) Screen Not Detected (NotDetected) 09/07/24 Range/Units 15:30 WBC (3.8-10.6) k/uL RBC (4.30-5.90) m/uL Hgb (13.0-17.5) gm/dL Hct (39.0-53.0) % MCV (80.0-100.0) fL MCH (25.0-35.0) pg MCHC (31.0-37.0) g/dL RDW (11.5-15.5) % Plt Count (150-450) k/uL MPV Neutrophils % % Lymphocytes % % Monocytes % % Eosinophils % % Basophils % % Neutrophils # (1.3-7.7) k/uL Lymphocytes # (1.0-4.8) k/uL Monocytes # (0-1.0) k/uL Eosinophils # (0-0.7) k/uL Basophils # (0-0.2) k/uL PT (10.0-12.5) sec INR (<1.2) APTT (22.0-30.0) sec Sodium 142 (137-145) mmol/L Potassium 4.3 (3.5-5.1) mmol/L Chloride 109 H (98-107) mmol/L Carbon Dioxide 20 L (22-30) mmol/L Anion Gap 13 mmol/L BUN 30 H (9-20) mg/dL Creatinine 1.21 (0.66-1.25) mg/dL Est GFR (CKD-EPI)AfAm 64 (>60 ml/min/1.73 sqM) Est GFR (CKD-EPI)NonAf 55 (>60 ml/min/1.73 sqM) Glucose 73 L (74-99) mg/dL Calcium 9.6 (8.4-10.2) mg/dL Total Bilirubin 1.8 H (0.2-1.3) mg/dL AST 87 H (17-59) U/L ALT 35 (4-49) U/L Alkaline Phosphatase 56 (38-126) U/L Creatine Kinase 4379 H* (55-170) U/L Total Protein 6.8 (6.3-8.2) g/dL Albumin 4.4 (3.5-5.0) g/dL Urine Color Urine Appearance (Clear) Urine pH (5.0-8.0) Ur Specific [place] (1.001-1.035) Urine Protein (Negative) Urine Glucose (UA) (Negative) Urine Ketones (Negative) Urine Blood (Negative) Urine Nitrite (Negative) Urine Bilirubin (Negative) Urine Urobilinogen (<2.0) mg/dL Ur Leukocyte Esterase (Negative) Urine RBC (0-5) /hpf Urine WBC (0-5) /hpf Amorphous Sediment (None) /hpf Urine Mucus (None) /hpf Urine Opiates Screen (NotDetected) Ur Oxycodone Screen (NotDetected) Urine Methadone Screen (NotDetected) Ur Barbiturates Screen (NotDetected) U Tricyclic Antidepress (NotDetected) Ur Phencyclidine Scrn (NotDetected) Ur Amphetamines Screen (NotDetected) U Methamphetamines Scrn (NotDetected) U Benzodiazepines Scrn (NotDetected) Urine Cocaine Screen (NotDetected) U Marijuana (THC) Screen (NotDetected) Disposition Clinical Impression: Fall, Rhabdomyolysis Disposition: ADMITTED IP TO THIS [facility] Condition: Stable Is patient prescribed a controlled substance at d/c from ED?: No Referrals: Lito Bassett MD [Primary Care Provider] - 1-2 days Time of Disposition: 17:28
[2024-09-07 15:53] LABS: Basophils % (A) 0 %; Eosinophils % (A) 0 %; HCT 40.4 % (39.0-53.0); HGB 13.2 gm/dL (13.0-17.5); Lymphocytes # (A) 0.8 k/uL (1.0-4.8); Lymphocytes % (A) 6 %; MCHC 32.6 g/dL (31.0-37.0); MCV 101.3 fL (80.0-100.0); Mean Platelet Volume 7.9; Monocytes # (A) 0.6 k/uL (0-1.0); Monocytes % (A) 5 %; Neutrophils # (A) 11.8 k/uL (1.3-7.7); Neutrophils % (A) 88 %; Platelet Count 174 k/uL (150-450); RBC 3.99 m/uL (4.30-5.90); RDW 13.2 % (11.5-15.5); WBC 13.4 k/uL (3.8-10.6)
[2024-09-07] MEDS: SODIUM CHLORIDE 0.9% 500 ML 500 ML IV ONE (15:59)
[2024-09-07 16:03] LABS: ALT 35 U/L (4-49); AST 87 U/L (17-59); African American GFR (CKD) 64 (>60 ml/min/1.73 sqM); Albumin 4.4 g/dL (3.5-5.0); Alkaline Phosphatase 56 U/L (38-126); Anion Gap 13 mmol/L; Blood Urea Nitrogen 30 mg/dL (9-20); Calcium 9.6 mg/dL (8.4-10.2); Carbon Dioxide 20 mmol/L (22-30); Chloride 109 mmol/L (98-107); Glucose 73 mg/dL (74-99); Non-African American GFR(CKD) 55 (>60 ml/min/1.73 sqM); Potassium 4.3 mmol/L (3.5-5.1); Sodium 142 mmol/L (137-145); Total Bilirubin 1.8 mg/dL (0.2-1.3); Total Protein 6.8 g/dL (6.3-8.2)
[2024-09-07 16:16] LABS: INR 1.2 (<1.2); Partial Thromboplastin Time 25.8 sec (22.0-30.0); Prothrombin Time 12.4 sec (10.0-12.5)
[2024-09-07 16:27] LABS: Amorphous Sediment,Urine Few /hpf; Appearance,Urine Cloudy (Clear); Bilirubin,Urine Negative (Negative); Blood,Urine Small (Negative); Color,Urine Yellow; Glucose,Urine (UA) Negative (Negative); Ketones,Urine Negative (Negative); Leukocyte Esterase,Urine Negative (Negative); Mucus,Urine Rare /hpf; Nitrite,Urine Negative (Negative); Protein,Urine Trace (Negative); RBC,Urine 1 /hpf (0-5); Urobilinogen,Urine <2.0 mg/dL (<2.0); WBC,Urine 3 /hpf (0-5)
[2024-09-07 16:29] LABS: Amphetamine Screen,Urine Not Detected (NotDetected); Barbiturate Screen,Urine Not Detected (NotDetected); Benzodiazepines Screen,Urine Not Detected (NotDetected); Cocaine Screen,Urine Not Detected (NotDetected); Methadone Screen, Urine Not Detected (NotDetected); Opiate Screen,Urine Detected (NotDetected); Oxycodone Screen, Urine Not Detected (NotDetected); Phencyclidine Screen,Urine Not Detected (NotDetected); Tricyclic Antidepressant,Urine Detected (NotDetected); Urn Cannabinoid Scrn Not Detected (NotDetected)
--- NOTE | 2024-09-07 16:30 | CT ---
EXAMINATION TYPE: CT brain neeru wo con DATE OF EXAM: 09/07/2024 COMPARISON: 05/15/2023 HISTORY: 84-year-old male trauma, pain, Fell at 5 am on floor until able to call ems. C/O generalized soreness pain to both legs. CT DLP: 1406.3 mGycm Automated exposure control for dose reduction was used. Technique: Examination of the head was done in axial plane without intravenous contrast. Coronal and sagittal reconstructions performed. CT of the cervical spine was obtained in axial plane without intravenous injection of contrast mater ial. Coronal and sagittal reformatted images were obtained from the axial views for evaluation of f ractures, spinal alignment and canal. FINDINGS: Head: There is no evidence of acute intracranial hemorrhage, acute ischemic changes, mass, mass-effect, or extra-axial fluid collection. There is no effacement of cerebral sulci or basal subarachnoid cister ns. There is no hydrocephalus. There is no midline shift. Rolle-white matter distinction is preserv ed. Mild patchy white matter hypodensities in both cerebral hemispheres. Mild to moderate supratentorial volume loss is similar. Mucosal thickening ethmoid air cells. Leftward nasal septal deviation. Mastoid air cells well pneumat ized. The globes are intact. Cervical spine: No craniocervical junction anomaly, no predental space widening, or prevertebral soft tissue swelling . Mild to moderate degenerative disc disease mid to lower cervical spine. Scattered facet and uncovertebral joint arthropathy especially mid to lower cervical spine. Degenerative grade 1 retrolisthesis C4-C5 and C5-C6. No evident canal compromise by CT. There is variable moderate neuroforaminal stenoses throughout especially lower cervical spine. Sagittal and coronal reformatted images confirm above findings. COMBINED IMPRESSION: 1. Mild to moderate generalized central atrophy and mild burden of chronic small vessel ischemic dise ase. No acute intracranial abnormality seen. 2. No acute fracture of the cervical spine. Similar degenerative grade 1 retrolisthesis C4-C5 and C5- C6. Mild to moderate spondylotic change. [facility], , 09/07/2024 4:28 PM
[2024-09-07 16:42] LABS: Creatine Kinase 4379 U/L (55-170)
[2024-09-07] MEDS: SODIUM CHLORIDE 0.9% 1,000 ML IV SCH (16:57)
--- NOTE | 2024-09-07 17:25 | XR ---
EXAMINATION TYPE: XR chest 1V portable, XR thoracic spine 3V, XR pelvis AP view DATE OF EXAM: 09/07/2024 Comparison: 05/15/2023 Clinical History: 84-year-old male with pain after fall, trauma Findings: Chest: Heart upper limits of normal size. Hyperinflation. No consolidation, pneumothorax, or pleural effusio n. Thoracic spine: 12 rib-bearing thoracic vertebral bodies. All pedicles are visualized. Osteopenia. [facility] lower thoraci c spine. Mild multilevel degenerative disc disease. Vertebral body heights are preserved and alignmen t is maintained. Pelvis: Previous dynamic hip screw fixation left femoral intertrochanteric region. Mild degenerative change o f both hips. Osteopenia. SI joints and pubic symphysis appear intact. Chronic appearing calcification left side of the pelvis measuring 1.4 cm. Degenerative change lower lumbar spine. No acute fracture seen. Impression: 1. Chest: Borderline heart size and COPD. No acute process seen. 2. Thoracic spine: Mild degenerative disc disease. [facility] lower thoracic spine. No vertebral compressio n collapse or malalignment seen. 3. Pelvis: Previous dynamic hip screw fixation proximal left femur. Mild bilateral hip OA. Osteopenia . No acute fracture seen. [facility], , 09/07/2024 5:23 PM
[2024-09-07] MEDS ORDERED: NALOXONE 0.4 MG/ML 1 ML VIAL IV PRN (17:28)
[2024-09-07] MEDS ORDERED: ONDANSETRON 4 MG/2 ML VIAL IVP PRN (17:28)
[2024-09-07] MEDS ORDERED: HYDROmorphone 0.5 MG/0.5 ML SYRINGE IVP PRN (17:28)
--- NOTE | 2024-09-07 18:22 | P.HPIM ---
History of Present Illness H&P Date: 09/07/24 Patient is a 83-year-old male with history of BPH and hypertension, dyslipidemia, depression/anxiety presenting after a fall and prolonged immobility. He claims that he normally ambulates using a walker. However, this morning he woke up to use a bedside urinal and his legs just gave out. He was unable to get off of the bed. After much struggle, he finally was able to pull an emergency cord. He was on the floor for almost 8 hours. He denies any recent fevers, chills, chest pain, abdominal pain, nausea, vomiting, new urinary complaints or bowel complaints. He currently lives alone in his apartment. His sister visits him once per week. In the ED, temperature was 97.1, pulse 83, respiratory rate 20, blood pressure 150/82, saturating 99% on room air. WBC 13.4, hemoglobin 13.2, bicarb 20, anion gap 13, BUN 30, creatinine 1.21, CK4 379, total bili 1.8, AST 87, ALT 35, ALP 56, urinalysis negative for nitrites and leukocyte esterase, toxicology positive for opiates and TCA. Chest x-ray did not show any acute process, thoracic spine x-ray did not show any acute fractures, pelvic x-ray did not show any acute fractures. Head CT did not show any acute process. EKG independently interpreted, shows sinus rhythm with frequent PACs and PVCs. QT C is prolonged. Patient was started on IV fluids. Is being admitted for acute traumatic rhabdomyolysis. Pertinent positives and negatives as discussed in HPI, a complete review of systems was performed and all other systems are negative. Patient seen and examined at bedside. Vital signs reviewed General: nontoxic, no distress, appears at stated age, thin appearing Derm: warm, dry Head: atraumatic, normocephalic, symmetric Eyes: EOMI, no lid lag, anicteric sclera, pupils equal round reactive to light ENT: Nose and ears atraumatic Neck: No thyromegaly, supple Mouth: no lip lesion, mucus membranes moist Cardiovascular: S1S2 reg, no murmur, no edema Lungs: clear to auscultation bilateral, no rhonchi, no rales, no wheeze, no accessory muscle use Abdominal: soft, nontender to palpation, no guarding, no appreciable o rganomegaly Ext: no gross muscle atrophy, muscle strength muscle strength 3 out of 5 in bilateral lower extremities, no contractures Neuro: CN II-XII grossly intact Psych: Alert, oriented, appropriate affect Assessment/Plan: Active: Acute traumatic rhabdomyolysis Debility Generalized weakness Mechanical fall Mild transaminitis Mild hyperbilirubinemia Prerenal azotemia Dehydration Leukocytosis, reactive Mild anion gap metabolic acidosis, likely secondary to dehydration and azotemia -Continue normal saline at 130 cc an hour -Continue to monitor renal function, CMP tomorrow -Patient is on atorvastatin and fenofibrate, could worsen myopathy, hold for now -PT/OT consulted Chronic: Hypertension Dyslipidemia-hold medications Depression/anxiety BPH The patient is admitted with an anticipated greater than 2 midnight stay as inpatient status for evaluation of acute rhabdomyolysis. Surrogate decision-maker: Sibling CODE STATUS: Full code DVT prophylaxis: Subcu Lovenox Anticipated discharge date: Pending clinical course Anticipated discharge place: Pending clinical course A total of 55 minutes was spent on the care of this complex patient more than 50% of the time was spent in counseling and care coordination. Past Medical History Past Medical History: Hyperlipidemia, Hypertension, Osteoarthritis (OA), Prostate Disorder History of Any Multi-Drug Resistant Organisms: None Reported Past Surgical History: Joint Replacement, Orthopedic Surgery Additional Past Surgical History / Comment(s): gall stones removed 03/2023 Past Anesthesia/Blood Transfusion Reactions: No Reported Reaction Past Psychological History: Depression Smoking Status: Never smoker Past Alcohol Use History: None Reported Past Drug Use History: None Reported - Past Family History Mother History Unknown: Yes Family Medical History: Hypertension Medications and Allergies Home Medications Medication Instructions Recorded Confirmed Type Fenofibrate [Lofibra] 160 mg PO DAILY 05/15/23 09/07/24 History Tamsulosin [Flomax] 0.4 mg PO BID 05/15/23 09/07/24 History Aspirin 81 mg PO DAILY tab 05/19/23 09/07/24 Rx Atorvastatin [Lipitor] 40 mg PO HS 09/07/24 09/07/24 History Cholecalciferol (Vitamin D3) 50 mcg PO DAILY 09/07/24 09/07/24 History [Vitamin D3 (50 Mcg = 2000 Iu)] Escitalopram [Lexapro] 10 mg PO DAILY 09/07/24 09/07/24 History Metoprolol Succinate (ER) [Toprol 25 mg PO DAILY 09/07/24 09/07/24 History Xl] Mv-Min/Folic/K1/Lycopen/Lutein 1 tab PO DAILY 09/07/24 09/07/24 History [Centrum Silver Men Tablet] QUEtiapine XR [SEROquel XR] 50 mg PO HS 09/07/24 09/07/24 History Allergies Allergy/AdvReac Type Severity Reaction Status Date / Time No Known Allergies Allergy Verified 09/07/24 16:21 Physical Exam Vitals: Vital Signs Temp Pulse Resp BP Pulse Ox 09/07/24 17:00 85 20 140/68 98 09/07/24 16:32 68 16 150/60 98 09/07/24 15:32 70 20 150/60 99 09/07/24 15:28 97.1 F L 83 20 150/82 99 Intake and Output 09/07/24 09/07/24 09/07/24 06:59 14:59 22:59 Other: Weight 56.699 kg Results CBC & Chem 7: 09/07/24 15:30 09/07/24 15:30 Labs: Abnormal Lab Results - Last 24 Hours (Table) 09/07/24 09/07/24 09/07/24 Range/Units 15:30 15:30 15:30 WBC 13.4 H (3.8-10.6) k/uL RBC 3.99 L (4.30-5.90) m/uL MCV 101.3 H (80.0-100.0) fL Neutrophils # 11.8 H (1.3-7.7) k/uL Lymphocytes # 0.8 L (1.0-4.8) k/uL INR 1.2 H (<1.2) Chloride (98-107) mmol/L Carbon Dioxide (22-30) mmol/L BUN (9-20) mg/dL Glucose (74-99) mg/dL Total Bilirubin (0.2-1.3) mg/dL AST (17-59) U/L Creatine Kinase (55-170) U/L Urine Protein Trace H (Negative) Urine Blood Small H (Negative) Amorphous Sediment Few H (None) /hpf Urine Mucus Rare H (None) /hpf Urine Opiates Screen Detected H (NotDetected) U Tricyclic Antidepress Detected H (NotDetected) 10/26/24 Range/Units 15:30 WBC (3.8-10.6) k/uL RBC (4.30-5.90) m/uL MCV (80.0-100.0) fL Neutrophils # (1.3-7.7) k/uL Lymphocytes # (1.0-4.8) k/uL INR (<1.2) Chloride 109 H (98-107) mmol/L Carbon Dioxide 20 L (22-30) mmol/L BUN 30 H (9-20) mg/dL Glucose 73 L (74-99) mg/dL Total Bilirubin 1.8 H (0.2-1.3) mg/dL AST 87 H (17-59) U/L Creatine Kinase 4379 H* (55-170) U/L Urine Protein (Negative) Urine Blood (Negative) Amorphous Sediment (None) /hpf Urine Mucus (None) /hpf Urine Opiates Screen (NotDetected) U Tricyclic Antidepress (NotDetected)
[2024-09-07] MEDS: QUEtiapine 25 MG TAB PO SCH (20:03)
[2024-09-07] MEDS: TAMSULOSIN 0.4 MG CAP.ER.24H PO SCH (20:03)
[2024-09-07 22:25] LABS: Glucose,Whole Blood 102 mg/dL (70-110)
[2024-09-08] MEDS: SODIUM CHLORIDE 0.9% 500 ML 500 ML IV ONE (03:15)
[2024-09-08 07:45] LABS: ALT 42 U/L (4-49); AST 117 U/L (17-59); African American GFR (CKD) 81 (>60 ml/min/1.73 sqM); Albumin 3.2 g/dL (3.5-5.0); Albumin/Globulin Ratio 1.5; Alkaline Phosphatase 41 U/L (38-126); Anion Gap 5 mmol/L; Blood Urea Nitrogen 34 mg/dL (9-20); Calcium 8.7 mg/dL (8.4-10.2); Carbon Dioxide 23 mmol/L (22-30); Chloride 112 mmol/L (98-107); Globulin 2.2 g/dL; Glucose 68 mg/dL (74-99); Magnesium 1.9 mg/dL (1.6-2.3); Non-African American GFR(CKD) 70 (>60 ml/min/1.73 sqM); Sodium 140 mmol/L (137-145); Total Bilirubin 1.4 mg/dL (0.2-1.3); Total Protein 5.4 g/dL (6.3-8.2)
[2024-09-08] MEDS: ASPIRIN 81 MG PO SCH (07:46)
[2024-09-08] MEDS: ENOXAPARIN 40 MG/0.4 ML SYRINGE SQ SCH (07:47)
[2024-09-08] MEDS: ESCITALOPRAM 10 MG TAB PO SCH (07:47)
[2024-09-08 09:38] LABS: Basophils # (A) 0.02 X 10*3/uL (0.00-0.10); Basophils % (A) 0.2 %; Eosinophils # (A) 0.04 X 10*3/uL (0.04-0.35); Eosinophils % (A) 0.4 %; HCT 32.9 % (39.6-50.0); HGB 10.9 g/dL (13.0-17.0); Lymphocytes # (A) 1.28 X 10*3/uL (0.90-5.00); Lymphocytes % (A) 14.3 %; MCH 33.5 pg (27.0-32.0); MCHC 33.1 g/dL (32.0-37.0); MCV 101.2 FL (80.0-97.0); Mean Platelet Volume 11.3 FL (9.5-12.2); Monocytes # (A) 0.55 X 10*3/uL (0.20-1.00); Monocytes % (A) 6.2 %; NRBC Per 100 WBC 0 X 10*3/uL (0.00-0.01); Neutrophils # (A) 7.02 X 10*3/uL (1.80-7.70); Neutrophils % (A) 78.6 %; Platelet Count 152 X 10*3/uL (140-440); RBC 3.25 X 10*6/uL (4.40-5.60); RDW 13.7 % (11.5-14.5); WBC 8.94 X 10*3/uL (4.50-10.00)
--- NOTE | 2024-09-08 14:34 | P.PN ---
Subjective Progress Note Date: 09/08/24 Hospital Course: 83-year-old male with history of BPH and hypertension, dyslipidemia, depressio n/anxiety presenting after a fall and prolonged immobility. In the ED, temperature was 97.1, pulse 83, respiratory rate 20, blood pressure 150/82, saturating 99% on room air. WBC 13.4, hemoglobin 13.2, bicarb 20, anion gap 13, BUN 30, creatinine 1.21, CK4 379, total bili 1.8, AST 87, ALT 35, ALP 56, urinalysis negative for nitrites and leukocyte esterase, toxicology positive for opiates and TCA. Chest x-ray did not show any acute process, thoracic spine x- ray did not show any acute fractures, pelvic x-ray did not show any acute fractures. Head CT did not show any acute process. EKG independently interpreted, shows sinus rhythm with frequent PACs and PVCs. QT C is prolonged. Patient was started on IV fluids. Is being admitted for acute traumatic rhabdomyolysis. Subjective: Patient seen and examined at bedside. No acute events overnight. Pertinent positives and negatives as discussed above, a complete review of systems was performed and all other systems are negative. Vitals Signs Reviewed. General: nontoxic, no distress, appears at stated age, thin appearing Derm: warm, dry Head: atraumatic, normocephalic, symmetric Eyes: EOMI, no lid lag, anicteric sclera, pupils equal round reactive to light ENT: Nose and ears atraumatic Neck: No thyromegaly, supple Mouth: no lip lesion, mucus membranes moist Cardiovascular: S1S2 reg, no murmur, no edema Lungs: clear to auscultation bilateral, no rhonchi, no rales, no wheeze, no accessory muscle use Abdominal: soft, nontender to palpation, no guarding, no appreciable organomegaly Ext: no gross muscle atrophy, muscle strength muscle strength 3 out of 5 in bilateral lower extremities, no contractures Neuro: CN II-XII grossly intact Psych: Alert, oriented, appropriate affect Data Reviewed Today: Pertinent Labs: WBC 8.94, hemoglobin 10.9, bicarb 23, creatinine 0.99, total bili 1.4, AST 117, CK5 372, troponin elevated, peaked at 0.060 Imaging: EKG overnight did not show any ST T wave changes. Assessment and Plan: Active: Acute traumatic rhabdomyolysis Debility Generalized weakness Mechanical fall Mild transaminitis Mild hyperbilirubinemia Prerenal azotemia Dehydration Leukocytosis, reactive resolved NSTEMI, likely type II Mild anion gap metabolic acidosis, likely secondary to dehydration and azotemia, resolved -Continue normal saline at 130 cc an hour -Continue to monitor renal function, CMP tomorrow -Patient is on atorvastatin and fenofibrate, could worsen myopathy, hold for now -PT/OT consulted -CK still uptrending, will repeated tomorrow -Continue telemetry monitoring Chronic: Hypertension Dyslipidemia-hold medications Depression/anxiety BPH DVT ppx: Lovenox Code status: Full code Anticipated discharge place: Pending clinical course Anticipated discharge time: Pending clinical course Objective - Vital Signs Vital signs: Vital Signs Temp 98.1 F 09/08/24 13:44 Pulse 62 09/08/24 13:44 Resp 16 09/08/24 13:44 BP 101/64 09/08/24 13:44 Pulse Ox 95 09/08/24 13:44 FiO2 Intake & Output 09/07/24 09/08/24 09/08/24 18:59 06:59 18:59 Output Total 0 Balance 0 Weight 56.699 kg 56.699 kg Output: Urine 0 Male - External 0 - Labs CBC & Chem 7: 09/08/24 06:58 09/08/24 06:58 Labs: Abnormal Lab Results - Last 24 Hours (Table) 09/07/24 09/07/24 09/07/24 Range/Units 15:30 15:30 15:30 WBC 13.4 H (3.8-10.6) k/uL RBC 3.99 L (4.30-5.90) m/uL Hgb (13.0-17.0) g/dL Hct (39.6-50.0) % MCV 101.3 H (80.0-100.0) fL MCH (27.0-32.0) pg Neutrophils # 11.8 H (1.3-7.7) k/uL Lymphocytes # 0.8 L (1.0-4.8) k/uL INR 1.2 H (<1.2) Chloride (98-107) mmol/L Carbon Dioxide (22-30) mmol/L BUN (9-20) mg/dL Glucose (74-99) mg/dL Total Bilirubin (0.2-1.3) mg/dL AST (17-59) U/L Creatine Kinase (55-170) U/L Troponin I (0.000-0.034) ng/mL Total Protein (6.3-8.2) g/dL Albumin (3.5-5.0) g/dL Urine Protein Trace H (Negative) Urine Blood Small H (Negative) Amorphous Sediment Few H (None) /hpf Urine Mucus Rare H (None) /hpf Urine Opiates Screen Detected H (NotDetected) U Tricyclic Antidepress Detected H (NotDetected) 09/07/24 09/08/24 09/08/24 Range/Units 15:30 03:13 06:58 WBC (3.8-10.6) k/uL RBC (4.30-5.90) m/uL Hgb (13.0-17.0) g/dL Hct (39.6-50.0) % MCV (80.0-100.0) fL MCH (27.0-32.0) pg Neutrophils # (1.3-7.7) k/uL Lymphocytes # (1.0-4.8) k/uL INR (<1.2) Chloride 109 H (98-107) mmol/L Carbon Dioxide 20 L (22-30) mmol/L BUN 30 H (9-20) mg/dL Glucose 73 L (74-99) mg/dL Total Bilirubin 1.8 H (0.2-1.3) mg/dL AST 87 H (17-59) U/L Creatine Kinase 4379 H* 5372 H* (55-170) U/L Troponin I 0.060 H* (0.000-0.034) ng/mL Total Protein (6.3-8.2) g/dL Albumin (3.5-5.0) g/dL Urine Protein (Negative) Urine Blood (Negative) Amorphous Sediment (None) /hpf Urine Mucus (None) /hpf Urine Opiates Screen (NotDetected) U Tricyclic Antidepress (NotDetected) 09/08/24 09/08/24 09/08/24 Range/Units 06:58 06:58 06:58 WBC (3.8-10.6) k/uL RBC 3.25 L (4.30-5.90) m/uL Hgb 10.9 L (13.0-17.0) g/dL Hct 32.9 L (39.6-50.0) % MCV 101.2 H (80.0-100.0) fL MCH 33.5 H (27.0-32.0) pg Neutrophils # (1.3-7.7) k/uL Lymphocytes # (1.0-4.8) k/uL INR (<1.2) Chloride 112 H (98-107) mmol/L Carbon Dioxide (22-30) mmol/L BUN 34 H (9-20) mg/dL Glucose 68 L (74-99) mg/dL Total Bilirubin 1.4 H (0.2-1.3) mg/dL AST 117 H (17-59) U/L Creatine Kinase (55-170) U/L Troponin I 0.058 H* (0.000-0.034) ng/mL Total Protein 5.4 L (6.3-8.2) g/dL Albumin 3.2 L (3.5-5.0) g/dL Urine Protein (Negative) Urine Blood (Negative) Amorphous Sediment (None) /hpf Urine Mucus (None) /hpf Urine Opiates Screen (NotDetected) U Tricyclic Antidepress (NotDetected) 09/08/24 Range/Units 09:38 WBC (3.8-10.6) k/uL RBC (4.30-5.90) m/uL Hgb (13.0-17.0) g/dL Hct (39.6-50.0) % MCV (80.0-100.0) fL MCH (27.0-32.0) pg Neutrophils # (1.3-7.7) k/uL Lymphocytes # (1.0-4.8) k/uL INR (<1.2) Chloride (98-107) mmol/L Carbon Dioxide (22-30) mmol/L BUN (9-20) mg/dL Glucose (74-99) mg/dL Total Bilirubin (0.2-1.3) mg/dL AST (17-59) U/L Creatine Kinase (55-170) U/L Troponin I 0.046 H* (0.000-0.034) ng/mL Total Protein (6.3-8.2) g/dL Albumin (3.5-5.0) g/dL Urine Protein (Negative) Urine Blood (Negative) Amorphous Sediment (None) /hpf Urine Mucus (None) /hpf Urine Opiates Screen (NotDetected) U Tricyclic Antidepress (NotDetected)
[2024-09-08] MEDS: METOPROLOL SUCCINATE (ER) 25 MG TAB.ER.24H PO SCH (14:40)
[2024-09-08 19:37] LABS: Glucose,Whole Blood 114 mg/dL (70-110)
[2024-09-09 07:02] LABS: Basophils % (A) 0 %; Eosinophils # (A) 0.1 k/uL (0-0.7); Eosinophils % (A) 1 %; HCT 37.6 % (39.0-53.0); HGB 12.2 gm/dL (13.0-17.5); Lymphocytes # (A) 1.2 k/uL (1.0-4.8); Lymphocytes % (A) 16 %; MCHC 32.5 g/dL (31.0-37.0); MCV 101.6 fL (80.0-100.0); Macrocytosis Slight; Mean Platelet Volume 8.2; Monocytes # (A) 0.5 k/uL (0-1.0); Monocytes % (A) 6 %; Neutrophils # (A) 5.6 k/uL (1.3-7.7); Neutrophils % (A) 75 %; Platelet Count 127 k/uL (150-450); WBC 7.6 k/uL (3.8-10.6)
[2024-09-09 07:20] LABS: ALT 60 U/L (4-49); AST 135 U/L (17-59); African American GFR (CKD) 81 (>60 ml/min/1.73 sqM); Albumin 3.1 g/dL (3.5-5.0); Alkaline Phosphatase 49 U/L (38-126); Anion Gap 3 mmol/L; Blood Urea Nitrogen 26 mg/dL (9-20); Calcium 8.6 mg/dL (8.4-10.2); Carbon Dioxide 26 mmol/L (22-30); Chloride 109 mmol/L (98-107); Glucose 75 mg/dL (74-99); Magnesium 1.9 mg/dL (1.6-2.3); Non-African American GFR(CKD) 70 (>60 ml/min/1.73 sqM); Potassium 3.8 mmol/L (3.5-5.1); Sodium 138 mmol/L (137-145); Total Protein 5.3 g/dL (6.3-8.2)
[2024-09-09 07:31] LABS: Creatine Kinase 3197 U/L (55-170)
--- NOTE | 2024-09-09 14:24 | P.PN ---
Subjective Progress Note Date: 09/09/24 Hospital Course: 83-year-old male with history of BPH and hypertension, dyslipidemia, depressio n/anxiety presenting after a fall and prolonged immobility. In the ED, temperature was 97.1, pulse 83, respiratory rate 20, blood pressure 150/82, saturating 99% on room air. WBC 13.4, hemoglobin 13.2, bicarb 20, anion gap 13, BUN 30, creatinine 1.21, CK4 379, total bili 1.8, AST 87, ALT 35, ALP 56, urinalysis negative for nitrites and leukocyte esterase, toxicology positive for opiates and TCA. Chest x-ray did not show any acute process, thoracic spine x- ray did not show any acute fractures, pelvic x-ray did not show any acute fractures. Head CT did not show any acute process. EKG independently interpreted, shows sinus rhythm with frequent PACs and PVCs. QT C is prolonged. Patient was started on IV fluids. Is being admitted for acute traumatic rhabdomyolysis. Subjective: Patient seen and examined at bedside. No acute events overnight. Pertinent positives and negatives as discussed above, a complete review of systems was performed and all other systems are negative. Vitals Signs Reviewed. General: nontoxic, no distress, appears at stated age, thin appearing Derm: warm, dry Head: atraumatic, normocephalic, symmetric Eyes: EOMI, no lid lag, anicteric sclera, pupils equal round reactive to light ENT: Nose and ears atraumatic Neck: No thyromegaly, supple Mouth: no lip lesion, mucus membranes moist Cardiovascular: S1S2 reg, no murmur, no edema Lungs: clear to auscultation bilateral, no rhonchi, no rales, no wheeze, no accessory muscle use Abdominal: soft, nontender to palpation, no guarding, no appreciable organomegaly Ext: no gross muscle atrophy, muscle strength muscle strength 3 out of 5 in bilateral lower extremities, no contractures Neuro: CN II-XII grossly intact Psych: Alert, oriented, appropriate affect Data Reviewed Today: Pertinent Labs: WBC 7.6, hemoglobin 12.2, platelet 127, creatinine 0.99, CK 3197, total bili 1, AST 135, ALT 60 Imaging: No new imaging Assessment and Plan: Active: Acute traumatic rhabdomyolysis, resolving Debility Generalized weakness Mechanical fall Mild transaminitis Mild hyperbilirubinemia, resolved Prerenal azotemia, resolved Dehydration, resolved Leukocytosis, reactive resolved NSTEMI, likely type II Mild anion gap metabolic acidosis, likely secondary to dehydration and azotemia, resolved -Discontinue IV fluids -Patient is on atorvastatin and fenofibrate, could worsen myopathy, hold for now -PT/OT consulted -CK is now downtrending -Continue telemetry monitoring Chronic: Hypertension Dyslipidemia-hold medications Depression/anxiety BPH DVT ppx: Lovenox Code status: Full code Anticipated discharge place: Pending clinical course Anticipated discharge time: Pending clinical course Objective - Vital Signs Vital signs: Vital Signs Temp 97.5 F L 09/09/24 10:05 Pulse 53 L 09/09/24 11:47 Resp 16 09/09/24 11:47 BP 134/76 09/09/24 11:47 Pulse Ox 100 09/09/24 11:47 FiO2 Intake & Output 09/08/24 09/09/24 09/09/24 18:59 06:59 18:59 Intake Total 1430 Output Total 650 550 Balance 780 -550 Weight 56.699 kg Intake: Intake, IV Titration 1430 Amount Sodium Chloride 0.9% 1, 1430 000 ml @ 130 mls/hr IV . [id number] [facility] Rx#:[id number] Output: Urine 650 550 Male - External 0 Other: Voiding Method External Catheter # Bowel Movements 0 - Labs CBC & Chem 7: 09/09/24 06:38 09/09/24 06:38 Labs: Abnormal Lab Results - Last 24 Hours (Table) 09/08/24 09/09/24 09/09/24 Range/Units 19:36 06:38 06:38 RBC 3.70 L (4.30-5.90) m/uL Hgb 12.2 L (13.0-17.5) gm/dL Hct 37.6 L (39.0-53.0) % MCV 101.6 H (80.0-100.0) fL Plt Count 127 L (150-450) k/uL Chloride 109 H (98-107) mmol/L BUN 26 H (9-20) mg/dL POC Glucose (mg/dL) 114 H (70-110) mg/dL AST 135 H (17-59) U/L ALT 60 H (4-49) U/L Creatine Kinase 3197 H* (55-170) U/L Total Protein 5.3 L (6.3-8.2) g/dL Albumin 3.1 L (3.5-5.0) g/dL
[2024-09-09] MEDS: ACETAMINOPHEN TAB 325 MG TAB PO PRN (20:25)
[2024-09-10 07:40] LABS: Basophils % (A) 0 %; Eosinophils # (A) 0.1 k/uL (0-0.7); Eosinophils % (A) 2 %; Lymphocytes # (A) 1.3 k/uL (1.0-4.8); Lymphocytes % (A) 25 %; MCH 33.4 pg (25.0-35.0); MCHC 33.4 g/dL (31.0-37.0); Mean Platelet Volume 8.9; Monocytes # (A) 0.4 k/uL (0-1.0); Monocytes % (A) 7 %; Neutrophils # (A) 3.4 k/uL (1.3-7.7); Neutrophils % (A) 64 %; Platelet Count 136 k/uL (150-450); RBC 3.59 m/uL (4.30-5.90); RDW 13.5 % (11.5-15.5); WBC 5.4 k/uL (3.8-10.6)
[2024-09-10 07:58] LABS: ALT 64 U/L (4-49); AST 111 U/L (17-59); African American GFR (CKD) 81 (>60 ml/min/1.73 sqM); Alkaline Phosphatase 58 U/L (38-126); Anion Gap 2 mmol/L; Blood Urea Nitrogen 22 mg/dL (9-20); Calcium 8.6 mg/dL (8.4-10.2); Carbon Dioxide 29 mmol/L (22-30); Chloride 108 mmol/L (98-107); Glucose 79 mg/dL (74-99); Non-African American GFR(CKD) 70 (>60 ml/min/1.73 sqM); Potassium 3.9 mmol/L (3.5-5.1); Sodium 139 mmol/L (137-145); Total Bilirubin 0.7 mg/dL (0.2-1.3); Total Protein 5.2 g/dL (6.3-8.2)
--- NOTE | 2024-09-10 12:28 | P.PN ---
Subjective Progress Note Date: 09/10/24 Hospital Course: 83-year-old male with history of BPH and hypertension, dyslipidemia, depressio n/anxiety presenting after a fall and prolonged immobility. In the ED, temperature was 97.1, pulse 83, respiratory rate 20, blood pressure 150/82, saturating 99% on room air. WBC 13.4, hemoglobin 13.2, bicarb 20, anion gap 13, BUN 30, creatinine 1.21, CK4 379, total bili 1.8, AST 87, ALT 35, ALP 56, urinalysis negative for nitrites and leukocyte esterase, toxicology positive for opiates and TCA. Chest x-ray did not show any acute process, thoracic spine x- ray did not show any acute fractures, pelvic x-ray did not show any acute fractures. Head CT did not show any acute process. EKG independently interpreted, shows sinus rhythm with frequent PACs and PVCs. QT C is prolonged. Patient was started on IV fluids. Is being admitted for acute traumatic rhabdomyolysis. Pending discharge to rehab Subjective: Patient seen and examined at bedside. No acute events overnight. Pertinent positives and negatives as discussed above, a complete review of systems was performed and all other systems are negative. Vitals Signs Reviewed. General: nontoxic, no distress, appears at stated age, thin appearing Derm: warm, dry Head: atraumatic, normocephalic, symmetric Eyes: EOMI, no lid lag, anicteric sclera, pupils equal round reactive to light ENT: Nose and ears atraumatic Neck: No thyromegaly, supple Mouth: no lip lesion, mucus membranes moist Cardiovascular: S1S2 reg, no murmur, no edema Lungs: clear to auscultation bilateral, no rhonchi, no rales, no wheeze, no accessory muscle use Abdominal: soft, nontender to palpation, no guarding, no appreciable organomegaly Ext: no gross muscle atrophy, muscle strength muscle strength 3 out of 5 in bilateral lower extremities, no contractures Neuro: CN II-XII grossly intact Psych: Alert, oriented, appropriate affect Data Reviewed Today: Pertinent Labs: WBC 5.4, hemoglobin 12, creatinine 0.99, total bili 0.7, AST 111, ALT 64, ALP 58 Imaging: No new imaging Assessment and Plan: Active: Acute traumatic rhabdomyolysis, resolving Debility Generalized weakness Mechanical fall Mild transaminitis, resolving Mild hyperbilirubinemia, resolved Prerenal azotemia, resolved Dehydration, resolved Leukocytosis, reactive resolved NSTEMI, likely type II Mild anion gap metabolic acidosis, likely secondary to dehydration and azotemia, resolved -Discontinue IV fluids -Patient is on atorvastatin and fenofibrate, could worsen myopathy, hold for now -PT/OT consulted-recommending rehab -CK is now downtrending -Continue telemetry monitoring Chronic: Hypertension Dyslipidemia-hold medications Depression/anxiety BPH DVT ppx: Lovenox Code status: Full code Anticipated discharge place: Subacute rehab Anticipated discharge time: Pending bed availability Objective - Vital Signs Vital signs: Vital Signs Temp 97.7 F 09/10/24 08:37 Pulse 66 09/10/24 12:17 Resp 18 09/10/24 12:17 BP 145/75 09/10/24 12:17 Pulse Ox 99 09/10/24 12:17 FiO2 Intake & Output 09/09/24 09/10/24 09/10/24 18:59 06:59 18:59 Intake Total 360 540 410 Output Total 550 900 Balance -190 540 -490 Weight 59.4 kg Intake: IV 10 Invasive Line 1 10 Oral 360 540 400 Output: Urine 550 900 Male - External 0 Other: Voiding Method External Catheter External Catheter External Catheter # Bowel Movements 1 - Labs CBC & Chem 7: 09/10/24 06:33 09/10/24 06:33 Labs: Abnormal Lab Results - Last 24 Hours (Table) 09/10/24 09/10/24 Range/Units 06:33 06:33 RBC 3.59 L (4.30-5.90) m/uL Hgb 12.0 L (13.0-17.5) gm/dL Hct 36.0 L (39.0-53.0) % Plt Count 136 L (150-450) k/uL Chloride 108 H (98-107) mmol/L BUN 22 H (9-20) mg/dL AST 111 H (17-59) U/L ALT 64 H (4-49) U/L Total Protein 5.2 L (6.3-8.2) g/dL Albumin 3.0 L (3.5-5.0) g/dL
[2024-09-10 13:37] VITALS: BMI 21.1
[2024-09-10 17:00] VITALS: TEMP 97.9
--- NOTE | 2024-09-11 11:11 | P.DS ---
Providers Date of admission: 09/07/24 17:29 Expected date of discharge: 09/11/24 Attending physician: Jose Hutchins Primary care physician: Lito Bassett Hospital Course: Discharge Diagnosis: Acute traumatic rhabdomyolysis Debility Generalized weakness Mechanical fall Mild transaminitis Mild hyperbilirubinemia Prerenal azotemia Dehydration Leukocytosis, reactive NSTEMI, likely type II Mild anion gap metabolic acidosis, likely secondary to dehydration and azotemia Hypertension Dyslipidemia Depression/anxiety BPH Sacral decubitus ulcer, present on admission Hospital Course: 83-year-old male with history of BPH and hypertension, dyslipidemia, depression/anxiety presenting after a fall and prolonged immobility. In the ED, temperature was 97.1, pulse 83, respiratory rate 20, blood pressure 150/82, saturating 99% on room air. WBC 13.4, hemoglobin 13.2, bicarb 20, anion gap 13, BUN 30, creatinine 1.21, CK4 379, total bili 1.8, AST 87, ALT 35, ALP 56, urinalysis negative for nitrites and leukocyte esterase, toxicology positive for opiates and TCA. Chest x-ray did not show any acute process, thoracic spine x- ray did not show any acute fractures, pelvic x-ray did not show any acute fractures. Head CT did not show any acute process. EKG independently interpreted, shows sinus rhythm with frequent PACs and PVCs. QT C is prolonged. Patient was started on IV fluids. Is being admitted for acute traumatic rhabdomyolysis. No renal dysfunction. CK improved with IV fluids. Patient being discharged to subacute rehab. Patient seen and examined at bedside. Vital signs reviewed and stable. General: Nontoxic, no distress, appears at stated age Derm: Warm, dry, sacrum not observed Head: Atraumatic, normocephalic, symmetric Eyes: EOMI, no lid lag, anicteric sclera Mouth: No lip lesion, mucus membranes moist Cardiovascular: S1S2 reg, no murmur Lungs: CTA bilateral, no rhonchi, no rales, no accessory muscle use Abdominal: Soft, nontender to palpation, no guarding, no appreciable organomegaly Ext: No gross muscle atrophy, no edema, no contractures Neuro: CN II-XI grossly intact, no focal neuro deficits Psych: Alert, oriented, appropriate affect A total of 36 minutes of time were spent preparing this complex discharge summary. Patient was discharged on 09/11/2024 at 959. Patient Condition at Discharge: Stable Plan - Discharge Summary New Discharge Prescriptions: Continue Aspirin 81 mg PO DAILY tab Escitalopram [Lexapro] 10 mg PO DAILY Mv-Min/Folic/K1/Lycopen/Lutein [Centrum Silver Men Tablet] 1 tab PO DAILY Atorvastatin [Lipitor] 40 mg PO HS Tamsulosin [Flomax] 0.4 mg PO BID QUEtiapine XR [SEROquel XR] 50 mg PO HS Metoprolol Succinate (ER) [Toprol XL] 25 mg PO DAILY Cholecalciferol (Vitamin D3) [Vitamin D3 (50 Mcg = 2000 Iu)] 50 mcg PO DAILY Discontinued Fenofibrate [Lofibra] 160 mg PO DAILY Discharge Medication List Tamsulosin [Flomax] 0.4 mg PO BID 05/15/23 [History] Aspirin 81 mg PO DAILY tab 05/19/23 [Rx] Atorvastatin [Lipitor] 40 mg PO HS 09/07/24 [History] Cholecalciferol (Vitamin D3) [Vitamin D3 (50 Mcg = 2000 Iu)] 50 mcg PO DAILY 09/07/24 [History] Escitalopram [Lexapro] 10 mg PO DAILY 09/07/24 [History] Metoprolol Succinate (ER) [Toprol XL] 25 mg PO DAILY 09/07/24 [History] Mv-Min/Folic/K1/Lycopen/Lutein [Centrum Silver Men Tablet] 1 tab PO DAILY 09/07/24 [History] QUEtiapine XR [SEROquel XR] 50 mg PO HS 09/07/24 [History] Follow up Appointment(s)/Referral(s): Lito Bassett MD [Primary Care Provider] - 1-2 days Patient Instructions/Handouts: Rhabdomyolysis (DC) Activity/Diet/Wound Care/Special Instructions: Please see your PCP. Discharge Disposition: TRANSFER TO SNF/ECF
[2024-09-11 12:16] VITALS: BP 120/78; PULSE 70; RESP 18
--- NOTE | 2024-09-11 15:14 | CDI ---
Documentation Clarification Form Date: 09/11/2024 03:03:28 PM From: Meghan Hager RN CCDS Phone: [phone] Admit Date: 09/07/2024 05:29:00 PM Patient Name: Moiz Gutierrez Visit Number: [id number] Discharge Date: ATTENTION: The Clinical Documentation Specialists (CDI) and [facility] Coding Staff appreciate your assistance in clarifying documentation. Please respond to the clarification below the line at the bottom and electronically sign. The CDI & [facility] Coding staff will review the response and follow-up if needed. Please note: Queries are made part of the Legal Health Record. If you have any questions, please contact the author of this message via ITS. Doctor: Jose Hutchins Conflicting documentation has been found in the medical record. As attending physician, please provide clarification. A stage 2 coccyx pressure ulcer is documented in Nursing pressure injury assessment 09/09- 09/11. Sacral decubitus ulcer, poa. Documented in discharge summary, 09/11 History/Risk Factors: Clinical Indicators: noted in the pressure injury assessment by nursing. Location: Coccyx Wound description: photo taken Treatment: Foam with border, Turn 2QH, Please clarify the stage of pressure ulcer, if known: [ x ] Stage 2 Pressure Ulcer Coccyx [ ] Sacral decubitus ulcer (please add stage if known) [ ] Other condition, please specify [ ] Unable to determine Clinical Definitions: Stage 1 Pressure Ulcer: intact skin, non-blanching redness of local area Stage 2 Pressure Ulcer: Partial thickness, loss of dermis, pink wound bed Stage 3 Pressure Ulcer: Full thickness tissue loss Stage 4 Pressure Ulcer: Full thickness tissue loss with exposed bone, tendon, or muscle. Unstageable pressure ulcer: Full thickness tissue loss in which the base of the ulcer is covered by slough (yellow, harrison, chu, green or brown) and/or eschar (harrison, brown or black) in the wound bed. (Template Last Revised: January 2021) [id number]
== END 2024-09-11 15:03 | DRG 564 ==
LOC: EC 15:26 → 5NMEDONC 17:29 → 3SCARD 09-08 04:42
PROVIDERS: ADMIT Student in an Organized Health Care Education/Training Program; ATTEND Student in an Organized Health Care Education/Training Program
DX: T79.6XXA Traumatic ischemia of muscle, initial encounter (principal); I21.A1 Myocardial infarction type 2; E87.20 Acidosis, unspecified; R17 Unspecified jaundice; E78.5 Hyperlipidemia, unspecified; I10 Essential (primary) hypertension; F41.9 Anxiety disorder, unspecified; F32.A Depression, unspecified; E86.0 Dehydration; W19.XXXA Unspecified fall, initial encounter; R53.81 Other malaise; R74.01 Elevation of levels of liver transaminase levels; L89.152 Pressure ulcer of sacral region, stage 2; N40.0 Benign prostatic hyperplasia without lower urinary tract symptoms; S09.90XA Unspecified injury of head, initial encounter; Z79.82 Long term (current) use of aspirin; Z79.899 Other long term (current) drug therapy
CPT/HCPCS: 36415; 51702; 51798; 70450; 71045; 72070; 72125; 72170; 80053; 80306; 81001; 82550; 83735; 84484; 85025; 85610; 85730; 93005; 94760; 96360; 96361; 96372; 99285